=== PATIENT | female | born 1960 | race Caucasian/White ===

== ENCOUNTER 2018-03-03 12:14 | Day surgery (SDC) | payer BC ==
--- NOTE | 2018-02-25 12:51 | HP ---
AMENDED REPORT NOW INCLUDES COSIGNER DESIGNATION - ESIGNED BEFORE ADJUSTMENT CC: Dr. Jennifer Ward; Dr. Paxton Osborn * PREOPERATIVE HISTORY AND PHYSICAL: DATE OF ADMISSION: 03/03/18 DATE OF PREOPERATIVE HISTORY AND PHYSICAL EXAMINATION: 02/25/18. This patient is scheduled for same-day surgery admission by Dr. Awad on , 03/03/18. ATTENDING SURGEON: Dr. Ezequiel Awad * (dictated by Laura Espinoza NP). CHIEF COMPLAINT: Gallstones. HISTORY OF PRESENT ILLNESS: The patient is a 58-year-old female, recently evaluated by Dr. Awad for symptomatic cholelithiasis. The patient reports that she has had gallbladder problems for a few years and was evaluated by Dr. Quezada in the past and at that point, her diabetes was not under control and the surgery was postponed. More recently, she has been having right upper quadrant pain radiating to the back associated with queasiness and bloating. She has occasional bouts of light mina-colored stools, no dark urine, no fevers or chills. She recently had a gallbladder ultrasound, which shows cholelithiasis. She has been on a low-fat diet and has been able to lose 30 pounds over the last 6 months and her diabetes is under better control. Dr. Awad has recommended laparoscopic cholecystectomy and described the nature of the surgical procedure, the relevant risks and benefits and today, I reviewed the expected postoperative care and recovery. The patient has had a chance to ask questions and stated that she understands the information and is satisfied with the answers given to her questions. She will sign surgical consent on the day of surgery. PAST MEDICAL HISTORY: Significant for type 2 diabetes, currently on insulin; obesity; borderline hypertension; mild TIA. PAST SURGICAL HISTORY: section; D and C. OB HISTORY: 1, para 1. She is postmenopausal and has a plan to schedule mammogram and pelvic exam. MEDICATIONS: 1. Aspirin 81 mg p.o. daily, which she will continue in the perioperative period. 2. Basaglar 100 units per mL 22 units subcutaneously daily at bedtime. 3. NovoLog 100 units per mL sliding scale. 4. Melatonin 3 mg p.o. at bedtime. ALLERGIES: ERYTHROMYCIN, AUGMENTIN, and LEVAQUIN, all have caused rash; RAMIPRIL caused persistent cough. FAMILY HISTORY: Positive for heart disease and diabetes. 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 She has never smoked. She drinks alcohol very rarely and denies the use of other substances. She is routinely exercising. REVIEW OF SYSTEMS: Constitutional: No fevers, chills, excessive fatigue. Endocrine: She is diabetic and is currently on insulin. She checks her fingersticks glucose before each meal, typically it is running in the 120 to 138 range. No known thyroid disease. Hematologic: No easy bruising or bleeding. No blood transfusions. Respiratory: No dyspnea on exertion. No chronic cough. Cardiovascular: No anginal chest pain or palpitations. She had a consultation with Dr. Osborn 11/18/17 after she had an abnormal echocardiogram. She had a mild TIA in the spring of this year with symptoms of impaired speech for a very brief period of time and therefore, the echocardiogram was recommended and done 10/01/17. The echocardiogram showed normal LV function with ejection fraction of 60%. Mild left ventricular hypertrophy and mild diastolic dysfunction, minimal valvular disease. She has not had any recurrence of the impaired speech and is scheduled for Neurology followup. She will also have followup with Dr. Osborn. Her EKG revealed normal sinus rhythm with left ventricular hypertrophy. Gastrointestinal: As described in history of present illness. No change in bowel habits. No GI bleeding. No heartburn. Genitourinary: No dysuria. No tea-colored urine. Musculoskeletal: No complaints of joint or back pain. Neurologic: No headache or blurred vision. No areas of focal weakness or numbness. No recurrence of impaired speech. General: No previous anesthesia complications. No history of deep vein thrombosis or pulmonary embolism. PHYSICAL EXAMINATION GENERAL SURVEY: The patient is a 58-year-old female, morbidly obese, well developed, in no acute distress. VITAL SIGNS: Height 65 inches, weight 263 pounds, body mass index 43.8. Blood pressure 148/80, pulse 62 and regular, respiratory rate 18. Temperature 96.4 tympanic. HEENT: Benign. Sclerae anicteric. NECK: Supple. No cervical lymphadenopathy. LUNGS: Breath sounds bilaterally clear and equal. HEART: Regular rate and rhythm. No murmurs or rubs appreciated. ABDOMEN: Obese, soft, nondistended. Active bowel sounds. Mildly tender in the right upper quadrant. No guarding. No Venegas's sign. No obvious masses or organomegaly, but exam is limited by body habitus. No skin fold rashes. PELVIC: Exam deferred. RECTAL: Exam deferred. EXTREMITIES: Right lower extremity with ropy varicose veins; no edema. Both lower extremities are warm with 2+ pulses throughout. No skin ulcerations. NEUROLOGIC: Alert and oriented x3. Steady gait. SKIN: Warm, dry intact, anicteric. IMPRESSION: Symptomatic cholelithiasis. PLAN: Same-day surgery admission to Dr. Awad's service for laparoscopic cholecystectomy on , 03/03/18. ADRIANO ESPINOZA, ISREAL [id number]/[facility] #: [id number] TAMEKA
[~2018-03-03 12:14] MED LIST: Buffered Lidocaine 0.9% SYRIN* 5 ML/SYR SYRINGE INTRADERM ONE
[2018-03-03] MEDS ORDERED: Heparin VIAL(*) 5000 UNITS/ML VIAL (FIVE THOUSAND) ONE (12:25)
[2018-03-03] MEDS ORDERED: Clindamycin 900 MG IVPREMIX(* 900 MG/50 ML SDV IV ONE (12:26)
[2018-03-03] MEDS ORDERED: Bupivacaine 0.25% W/EPI* 10 ML SDV ONE (12:35)
[2018-03-03] MEDS ORDERED: Propofol* 10 MG/ML 20 ML BTL IV PUSH ONE (14:20)
[2018-03-03] MEDS ORDERED: fentaNYL* 50 MCG/ML 2 ML VIAL (100 MCG VIAL) ONE ×2 (14:20→15:43)
[2018-03-03] MEDS ORDERED: Midazolam* 1 MG/ML 5 ML VIAL (5 MG) ONE (14:20)
[2018-03-03] MEDS ORDERED: Atracurium* 10 MG/ML 10 ML VIAL ONE (14:20)
[2018-03-03] MEDS ORDERED: Ondansetron INJ* 2 MG/ML VIAL IV PRN (15:28)
[2018-03-03] MEDS ORDERED: HYDROmorphone INJ* 0.5 MG/0.5 ML SYRINGE IV PRN (15:28)
[2018-03-03] MEDS ORDERED: DiMENhydriNATE IV* 50 MG/ML VIAL IV PUSH PRN (15:28)
[2018-03-03] MEDS ORDERED: HYDROcodone/ACETAMIN 5-325 MG* 1 TAB PO PRN (15:28)
[2018-03-03] MEDS ORDERED: oxyCODONE/Acetamin 5/325 MG* TAB PO PRN (15:28)
[2018-03-03] MEDS ORDERED: Naloxone* 0.4 MG/ML 1 ML VIAL IV PRN (15:28)
[2018-03-03] MEDS ORDERED: Ketorolac INJ* 30 MG/ML 1 ML VIAL ONE (15:30)
[2018-03-03] MEDS ORDERED: Ondansetron INJ* 2 MG/ML VIAL ONE (15:30)
[2018-03-03] MEDS: fentaNYL* 50 MCG/ML 2 ML VIAL (100 MCG VIAL) IV PRN ×4 (15:45→15:58)
[2018-03-03] MEDS ORDERED: HYDROcodone/ACETAMIN 5-325 MG* 1 TAB ONE (16:57)
[2018-03-03 17:28] VITALS: BP 156/83
--- NOTE | 2018-03-04 01:16 | OP ---
CC: Dr. Jennifer Ward * DATE OF OPERATION: 03/03/18 - [facility] DATE OF : 62 SURGEON: Ezequiel Awad MD INSPECTOR BALL POINTS: Lacie Ledezma NP ANESTHESIOLOGIST: Dr. Chacon. ANESTHESIA: General anesthetic, local infiltration. PRE-OP DIAGNOSIS: Symptomatic cholelithiasis. POST-OP DIAGNOSIS: Symptomatic cholelithiasis. OPERATIVE PROCEDURE: Laparoscopic cholecystectomy. DESCRIPTION OF PROCEDURE: The patient was supine on the operative table. After adequate general anesthetic, compression stockings, Carie Hugger warmer, and intravenous antibiotics, the abdomen was prepped with antiseptic and draped in a sterile fashion. She was appropriately secured and positioned on the table. Footboard was utilized. The abdomen was prepped with antiseptic and draped in a sterile fashion. Local infiltrative anesthesia was administered in the right upper quadrant. A 5-mm incision was created and 5-mm blunt port cannula was placed under direct vision. Insufflation was carried out with carbon dioxide. Additional cannulae, 5-mm supraumbilical and right anterior axillary line and 12-mm subxiphoid placed through small stab wounds under direct vision. The gallbladder had adhesions on it from the omentum. These were taken down. The gallbladder was tented upward and areola tissue was taken down with the cystic duct and cystic artery, which were both readily identified , clipped and divided. The gallbladder was taken off the liver bed using scissor cautery and there was some spillage. The gallbladder was placed in a retrieval bag. The area of spillage was well irrigated and washed and suctioned and no residual material could be identified. The gallbladder was removed through the subxiphoid port in the retrieval bag and the operative field was again inspected and irrigated. Everything was in good condition. The cannulae were removed. Pneumoperitoneum allowed to escape and skin incisions closed with 5-0 Vicryl followed by Steri-Strips. She tolerated the procedure well, was awakened and brought to Recovery in good condition. No complications. No drains. Pathologic specimen is gallbladder. Sponge and instrument counts correct. Estimated blood loss 20 mL. [id number]/[facility] #: [id number] [facility]
== END 2018-03-03 17:33 | disposition home or self-care (01) ==
LOC: OR 12:14
PROVIDERS: ATTEND Surgery
DX: K80.10 Calculus of gallbladder with chronic cholecystitis without obstruction (principal); E11.9 Type 2 diabetes mellitus without complications; Z79.4 Long term (current) use of insulin; G45.9 Transient cerebral ischemic attack, unspecified; E66.01 Morbid (severe) obesity due to excess calories; Z68.41 Body mass index [BMI] 40.0-44.9, adult; J45.909 Unspecified asthma, uncomplicated; I10 Essential (primary) hypertension
CPT/HCPCS: 88304; J1644; J1885; J2250; J2405; J2704; J3010

== ENCOUNTER 2018-09-14 16:15 | Inpatient (IN) | payer BC ==
--- NOTE | 2018-09-14 17:19 | ED ---
Neurological HPI - HPI Summary HPI Summary: 58 year old patient with past medical history of HTN and anxiety, presents to day complaining of subacute focal neurologic deficit since Wednesday evening. - History of Current Complaint Chief Complaint: EDNeurologicalDeficit Stated Complaint: MOBILITY ISSUE Time Seen by Provider: 09/14/18 16:32 Hx Obtained From: Patient, Family/All Source Analyst Onset/Duration: Gradual Onset, Started days ago, Worse Since Timing: Intermittent Episodes Lasting: - patient is having intermittent episodes of mouth numbness (including gums), ataxia, dysmetria and dysarthria since Wednesday evening. Onset Severity: Mild Current Severity: Moderate Neurological Deficit Location: Generalized, Facial Pain Intensity: 0 Pain Scale Used: 0-10 Numeric Character: Numbness/Tingling, Impaired Speech, Other: - difficulty ambulating, difficulty with fine movement in hands Syncope Timing: no syncope Aggravating: Unknown Alleviating: Nothing Associated Signs and Symptoms: Positive: Unsteady Gait, Change in Diet, Anxiety. Negative: Visual Changes, Headache, Memory Loss, Confusion, Loss of Consciousness, Seizure, Nausea/Vomiting, Decreased Oral Intake, Fever, Neck Pain /Stiffness, Recent Illness, Diarrhea, Chest Pain, Shortness of Breath, Palpitations TPA Considered: No - patient presented >4.5h Similar Episode/Dx as: possible TIA once in the past - Additional Pertinent History Referred By: PCP Previous Visit Within 72 Hours for the same complaint: PCP Diagnosis From Previous Visit: unknown, labs drawn Prescriptions Given On Prior Visit: none Oxygen Devices Used Prior to Hospitalization: None Have you ever had this problem before: Yes - once for 10 minutes, the patient had dysarthria, one year ago - Allergy/Home Medications Allergies/Adverse Reactions: Allergies Allergy/AdvReac Type Severity Reaction Status Date / Time ramipril Allergy Severe Coughing Verified 09/14/18 16:24 Adhesive Tape Allergy Intermediate Rash And Verified 09/14/18 16:24 Itching amoxicillin [From Augmentin] Allergy Intermediate Rash And Verified 09/14/18 16: 24 Itching clavulanic acid Allergy Intermediate Rash And Verified 09/14/18 16:24 [From Augmentin] Itching erythromycin base Allergy Intermediate Rash And Verified 09/14/18 16:24 Itching levofloxacin [From Levaquin] Allergy Intermediate Rash And Verified 09/14/18 16: 24 Itching Seasonal Allergies Allergy Mild Eyes Uncoded 09/14/18 16:24 Itchy/Swollen/Red/Watery Home Medications: Home Medications Atenolol 1 tab PO DAILY 09/14/18 [History Confirmed 09/14/18] PMH/Surg Hx/FS Hx/Imm Hx Endocrine/Hematology History: Reports: Hx Diabetes - Type 2, Hx Anemia - history of, none recent Cardiovascular History: Reports: Hx Hypertension, Other Cardiovascular Problems/ Disorders - Abnormal echocardiogram- Saw Dr Osborn 11/18/17 Respiratory History: Denies: Other Respiratory Problems/Disorders GI History: Reports: Other GI Disorders - Chronic colycystitis, calculus of gallbladder History: Reports: Other Problems/Disorders - history of UTIs prior to controlling diabetes Musculoskeletal History: Reports: Hx Arthritis - Right knee, Other Musculoskeletal History - History of torn meniscus left knee Sensory History: Reports: Hx Contacts or Glasses - Reading glasses Denies: Hx Hearing Aid Opthamlomology History: Reports: Hx Contacts or Glasses - Reading glasses Neurological History: Reports: Hx Nerve Disease - Diabetic Neuropathy Denies: Other Neuro Impairments/Disorders Psychiatric History: Reports: Hx Anxiety - history of, no medication, Hx Depression - history of, no medication - Cancer History Hx Chemotherapy: No Hx Radiation Therapy: No - Surgical History Surgery Procedure, Year, and Place: C section-cyst removal- general anesthesia. D&C. Oral surgery as a child Hx Anesthesia Reactions: No Infectious Disease History: No Infectious Disease History: Denies: Traveled Outside the [place] in Last 30 Days - Social History Alcohol Use: Rare Substance Use Type: Reports: None Smoking Status (MU): Never Smoked Tobacco Review of Systems Positive: Fatigue. Negative: Fever, Chills Eyes: Negative Positive: Nasal Discharge - mild rhinorrhea that started today Cardiovascular: Negative Negative: Palpitations, Chest Pain Respiratory: Negative Negative: Shortness Of Breath, Cough Gastrointestinal: Negative Negative: Abdominal Pain, Vomiting, Diarrhea, Nausea Genitourinary: Negative Negative: burning, frequency, hematuria Musculoskeletal: Negative Skin: Negative Neurological: Other - ataxia, dysmetria Positive: Numbness, Slurred Speech. Negative: Headache, Weakness Psychological: Normal, Other - History of anxiety in the past but not today All Other Systems Reviewed And Are Negative: Yes Physical Exam Triage Information Reviewed: Yes Vital Signs On Initial Exam: Initial Vitals Temp Pulse Resp BP Pulse Ox 98.4 F 68 19 153/87 97 09/14/18 16:19 09/14/18 16:19 09/14/18 16:19 09/14/18 16:19 09/14/18 16:19 Vital Signs Reviewed: Yes Appearance: Positive: Well-Appearing, Well-Nourished Skin: Positive: Skin Color Reflects Adequate Perfusion. Negative: Jaundiced, Mottled @ Head/Face: Positive: Normal Head/Face Inspection Eyes: Positive: EOMI, BUSTER ENT: Positive: Hearing grossly normal. Negative: Muffled voice, Hoarse voice Neck: Positive: Supple, Nontender, No Lymphadenopathy. Negative: Nuchal Rigidity Respiratory/Lung Sounds: Positive: Clear to Auscultation, Breath Sounds Present , Decreased Breath Sounds. Negative: Rales, Rhonchi, Stridor, Tracheal Deviation, Wheezes Cardiovascular: Positive: Normal, RRR. Negative: Murmur, Leg Edema Left, Leg Edema Right Abdomen Description: Positive: Nontender, No Organomegaly, Soft. Negative: Distended, Guarding, Pulsatile Mass Bowel Sounds: Positive: Present Musculoskeletal: Positive: Normal, Strength/ROM Intact Neurological: Positive: Alert, Oriented to Person Place, Time, Focal Deficit @, Heel to Toe - normal, Finger to Nose - patient has dysmetria in left hand., Other - NIHSS = 3. Negative: CN Intact II-III - minimally decreased sensation around mouth bilaterally. otherwise cranial nerves are intact, Receptive Aphasia, Expressive Aphasia, Facial Symmetry, Speech Normal - slurred speech that improves with effort Psychiatric: Positive: Affect/Mood Appropriate AVPU Assessment: Alert Diagnostics - Vital Signs Vital Signs Temp Pulse Resp BP Pulse Ox 09/14/18 16:19 98.4 F 68 19 153/87 97 - Laboratory Result Diagrams: 09/14/18 17:16 09/14/18 17:16 Lab Statement: Any lab studies that have been ordered have been reviewed, and results considered in the medical decision making process. NIH Scale - NIH Scale Ask Patient the Month and His/Her Age: Both Correct Ask Pt to Open/Close Eyes and Log Loader/Release Non-Paretic Hand: Both Correctly Best Gaze (Only Horizontal Eye Movement): Normal Visual Field Testing: No Visual Loss Facial Paresis-Pt to Smile & Close Eyes or Grimace Symmetry: Normal/Symmetrical Motor Function - Right Arm: No Drift-Holds 10 Seconds Motor Function - Left Arm: No Drift-Holds 10 Seconds Motor Function - Right Leg: No Drift-Holds 10 Seconds Motor Function - Left Leg: No Drift-Holds 10 Seconds Limb Ataxia-Must be out of Proportion to Weakness Present: Present in One Limb Sensory (Use Pinprick to Test Arms/Legs/Trunk/Face): Normal Best Language (Describe Picture, Name Items): No Aphasia Dysarthria (Read Several Words): Slurs Some Words Extinction and Inattention: No Abnormality Re-Evaluation - Re-Evaluation Second Eval Re-Evaluation Time: 18:30 - patient unchanged Change: Unchanged Course/Dx - Course Assessment/Plan: Assessment: Subacute neurologic deficit with focal hypoattenuation seen by radiology on CT head. Plan: Neurology consultation and admission to hospitalist service - Differential Dx Differential Diagnoses Neuro: Positive: Cerebrovascular Accident, Encephalitis, Migraine, Seizure Disorder, Transient Ischemic Attack - multiple sclerosis - Diagnoses Provider Diagnoses: Focal neurological deficit, onset greater than 24 hours - Physician Notifications Discussed Care Of Patient With: Shobha Sands - she recommends a CTA head and neck to rule out acute larve vessel occlusion. admission if negative Time Discussed With Above Provider: 18:50 Discharge - Sign-Out/Discharge Documenting (check all that apply): Sign-Out Patient Signing out patient TO: Amadeo Stuart - pending CTA result Patient Received Moderate/Deep Sedation with Procedure: No - Discharge Plan Condition: Stable Referrals: Ed WAGNER,Jennifer Garcia [Primary Care Provider] - - Billing Disposition and Condition Condition: STABLE
[2018-09-14 17:24] LABS: ABS Basophils 0.1 10^3/ul (0-0.2); ABS Eosinophils 0.2 10^3/ul (0-0.6); ABS Lymphocytes 2.9 10^3/ul (1.0-4.8); ABS Monocytes 0.8 10^3/ul (0-0.8); ABS Neutrophils 5.3 10^3/ul (1.5-7.7); ABS Nucleated RBC 0 10^3/ul; Eosinophil % 1.8 %; Hematocrit 41 % (35-47); Hemoglobin 13.9 g/dl (12.0-16.0); Lymphocyte % 31.6 %; Mean Corpuscular HGB Conc 34 g/dl (31-36); Mean Corpuscular Hemoglobin 30 pg (27-31); Mean Corpuscular Volume 89 fL (80-97); Mean Platelet Volume 8.9 fL (7.4-10.4); Nucleated Red Blood Cells % 0; Platelet Count 294 10^3/ul (150-450); Red Blood Count 4.61 10^6/ul (4.00-5.40); Red Cell Distribution Width 13 % (10.5-15); White Blood Count 9.2 10^3/ul (3.5-10.8)
[2018-09-14 17:33] LABS: Activated Partial Thrombo Time 32.7 seconds (26.0-36.3); INR 0.91 (0.77-1.02)
[2018-09-14 17:40] LABS: Albumin 3.9 g/dL (3.2-5.2); Albumin/Globulin Ratio 1.3 (1-3); BUN/Creatinine Ratio 31.7 (8-20); Calcium 9.7 mg/dL (8.6-10.3); EGFR African American 86.9 (>60); EGFR Non-African American 71.9 (>60); Potassium 4.7 mmol/L (3.5-5.0); Total Bilirubin 0.5 mg/dL (0.2-1.0); Total Protein 6.9 g/dL (6.4-8.9)
[2018-09-14 18:41] LABS: Magnesium 1.8 mg/dL (1.9-2.7)
[2018-09-14] MEDS ORDERED: Iodixanol* (CONTRAST) 320 MG/ML 100 ML SDV IV ONE (19:08)
[2018-09-14] MEDS ORDERED: Aspirin TAB* 325 MG PO ONE (20:18)
--- NOTE | 2018-09-14 20:24 | ED ---
Progress - Progress Note Progress Note: Pt is a signout from Dr. Diaz. She is presently stable and will be admitted to the hospital under Dr. Bai for further evaluation and testing. - Results/Orders Results/Orders: Head CTA: 1. Right: No stenosis of the right internal carotid artery or vertebral artery. 2. Left: Calcified plaque in the proximal left internal carotid artery and carotid bulb with approximately 30% stenosis. The vertebral artery is patent. 3. Hypodense nodule in the left thyroid lobe measuring 1.6 cm. Non-emergent ultrasound evaluation is suggested. - Consult/PCP Time Called: 20:15 Consult/PCP: Dr. Sands Consult Reason/Comments: Neurology consult - agreed with the plan, recommended admission. Re-Evaluation - Re-Evaluation Second Eval Re-Evaluation Time: 18:30 - patient unchanged Change: Unchanged Course/Dx - Diagnoses Provider Diagnoses: Focal neurological deficit, onset greater than 24 hours Discharge - Sign-Out/Discharge Documenting (check all that apply): Patient Departure - adm, Receiving Sign-Out Receiving patient FROM: Clair Diaz - Discharge Plan Condition: Stable Disposition: ADMITTED TO [facility] Referrals: Jennifer Ward MD [Primary Care Provider] - - Attestation Statements Document Initiated by Scribe: Yes Documenting Scribe: Josette Butts Provider For Whom Scribmarichuy is Documenting (Include Credential): Amadeo Stuart MD. Scribe Attestation: Josette Barcenas, scribed for Amadeo Stuart MD. on 09/14/18 at 2051.
[2018-09-14] MEDS ORDERED: Aspirin EC TAB* 81 MG TAB.EC ONE (20:31)
[2018-09-14] MEDS ORDERED: Acetaminophen TAB* 325 MG PO PRN (21:01)
[2018-09-14] MEDS ORDERED: Ondansetron INJ* 2 MG/ML VIAL IV PRN (21:01)
[2018-09-14] MEDS ORDERED: Dextrose 50% Syringe 50 ML* 25 GM/50 ML SYRINGE IV PUSH PRN (21:05)
[2018-09-14] MEDS ORDERED: LORazepam INJ* 2 MG/ML 1 ML VIAL IV PUSH ONE (21:17)
[2018-09-14] MEDS ORDERED: LORazepam INJ* 2 MG/ML 1 ML VIAL ONE (21:21)
[2018-09-14] MEDS ORDERED: Magnesium Sulfate 2 GM IV* 2 GM/50 ML BAG IVPB ONE (21:27)
[2018-09-14] MEDS ORDERED: Insulin GLARGINE(*) 1 UNITS UNIT SUBCUT SCH (22:00)
[2018-09-14 22:14] LABS: TSH (Thyroid Stimulating Horm) 1.66 mcIU/mL (0.34-5.60)
[2018-09-14] MEDS: Heparin VIAL(*) 5000 UNITS/ML VIAL (FIVE THOUSAND) SUBCUT SCH (22:46)
[2018-09-14] MEDS: Insulin GLARGINE(*) 1 UNITS UNIT SUBCUT SCH (22:47)
--- NOTE | 2018-09-15 02:44 | HP ---
CC: Dr. Jennifer Ward * HISTORY AND PHYSICAL: DATE OF ADMISSION: 09/14/18 PRIMARY CARE DOCTOR: Dr. Jennifer Ward. MY ATTENDING WHILE IN THE HOSPITAL: Dr. Josette Bai.* (DICTATED BY KAROLINA BLUM) CHIEF COMPLAINT: Slurred speech x3 days. HISTORY OF PRESENT ILLNESS: Ms. Sheryl Kaufman is a 58-year-old female with past medical history significant for diabetes mellitus type 2, hypertension, and possible TIA in September 2017 who presented to the emergency department after sudden onset of slurred speech on Wednesday in the evening, which got progressively worse from Wednesday to Wednesday and then plateaued. Patient on Wednesday also had associated symptoms of clumsiness and weakness in her right hand as well as difficulty ambulating, particularly with making turns and with falling more to her right than to her left. Patient had one episode of slurred speech that resolved quickly that she went to the [facility] for previously. Patient states that she saw a neurologist, Dr. Mathias in [place], who did not believe that she had a TIA at that time. Patient has relatively poorly controlled diabetes, for which she is on insulin. Patient recently started a ketogenic diet and has lost 48 pounds, she says. Patient yesterday went to see her primary care doctor, who ordered a beta fox for high blood pressure, which she took one dose of atenolol 25 mg. Patient had had no difficulty with swallowing during this slurred speech episode. Patient has not passed out. Patient has not had any palpitations. Patient denied any chest pain or shortness of breath. Patient has not been recently ill. Patient has no sick contacts. Patient has no other associated symptoms. Patient has no changes in her vision. Patient recently underwent an injection into her eye for diabetic retinopathy. Due to concern for CVA, we are asked to evaluate the patient for admission. PAST MEDICAL HISTORY: Diabetes mellitus type 2, diabetic retinopathy, recently diagnosed hypertension, history of possible TIA. PAST SURGICAL HISTORY: Cholecystectomy in February 2018, in 1984. MEDICATIONS: 1. Basaglar insulin 84 units subcutaneously daily. 2. NovoLog insulin sliding scale. 3. Atenolol 25 mg p.o. daily. 4. Aspirin 81 mg p.o. daily. ALLERGIES: ERYTHROMYCIN, RAMIPRIL, AMOXICILLIN, CLAVULANIC ACID, adhesive tape , and LEVOFLOXACIN. FAMILY HISTORY: Patient's mother is alive, but has had 2 different types of cancer, large-cell lymphoma and colon. Patient's father of multiple myeloma. Patient has a brother with anxiety and sister with diabetes. SOCIAL HISTORY: Patient never smoked, drinks occasional alcohol, never used drugs. 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 Patient's surrogate decision maker will be her , Edson Kaufman. REVIEW OF SYSTEMS: A 14-point review of systems was reviewed and was negative, except as above in the HPI. PHYSICAL EXAMINATION GENERAL: The patient is a 58-year-old female who appears her stated age, sitting comfortably in bed, in no acute distress. VITAL SIGNS: At the time of evaluation, temperature 98.4, pulse rate 64, respiratory rate 15, oxygen saturation 95% on room air, blood pressure 147/65. HEENT: Head: Normocephalic, atraumatic. Sclerae anicteric. No conjunctival injection. Nasal mucosa moist. Oral mucosa moist. No pharyngeal erythema, discharge, or exudate. NECK: Supple, nontender. No lymphadenopathy. No carotid bruit auscultated. No JVD. RESPIRATORY: Clear to auscultation bilaterally. No wheezes, rales, or rhonchi. Good air exchange bilaterally. HEART: Regular rate and rhythm. No clicks, murmurs, gallops, or rubs. Pulse 2 + in the dorsalis pedis, posterior tibialis and radial areas. ABDOMEN: Soft, nontender, nondistended. Bowel sounds present and normoactive in all 4 quadrants. No hepatosplenomegaly. No abdominal bruits auscultated. No hepatojugular reflux. GENITOURINARY: No suprapubic or CVA tenderness. SKIN: Clean, dry, and intact. No rash. NEUROLOGIC: Right-sided wrinkling is less than the left. Right eye opens wider than the left eye. Right-sided facial droop. Asymmetric smile. Normal sensation. Palate elevates to the midline. Tongue extends to the midline. Symmetrical hearing. Pupils equal, round, and reactive to light approximately 4 mm, reacting down to 2. Strength 4-/5 in the right upper extremity distally and proximally. Strength 5/5 in the left upper extremity distally and proximally. Preserved sensation to light touch, pinprick, and cold in bilateral upper and lower extremities distally and proximally. Strength 5/5 bilaterally in the lower extremities distally and proximally. Reflexes 2+ in bilateral biceps, patellar and Achilles areas. Babinski's is downgoing bilaterally. Dysmetria with right hand, symmetric finger taps. Gait not tested. No nystagmus. PSYCHIATRIC: Pleasant and cooperative. DIAGNOSTIC STUDIES/LAB DATA: Laboratory Data: White blood cell count 9.2, hemoglobin 13.9, platelet count 294. INR 0.91, aPTT 32.7. Sodium 139, potassium 4.7, chloride 104, carbon dioxide 30, anion gap 5, BUN 26, creatinine 0.82, glucose 155, lactic acid 0.8, calcium 9.7, magnesium 1.8. Bilirubin 0.5, AST 16, ALT 18, alkaline phosphatase 53. Troponin I 0.00. Total protein 6.9, albumin 3.9, globulin 3.0. Studies: Brain CT read as there is age-indeterminate asymmetric subcortical and periventricular white matter hypoattenuation involving the white matter tracts in the right frontal and parietal lobes. Differential diagnosis includes chronic microvascular disease versus subacute to chronic infarction in a patient exhibiting focal neurologic deficits. Characterization can be made with an MRI of the brain. Mild asymmetric enlargement of the lateral ventricle relative to the left of unknown chronicity, indeterminate clinical significance. Also, incidentally noted is septum cavum pellucidum of doubtful clinical significance. Electrocardiogram shows normal sinus rhythm, left axis deviation. No ST- segment abnormalities. No hypertrophic enlargement. U wave is present. Head CTA from 09/14/18 read as occlusion of the right middle cerebral artery and cortical branches is seen. No stenosis of the right internal carotid artery. The left vertebral artery has calcified plaque in the proximal left internal coronary artery and carotid bulb with approximately 37% stenosis. Vertebral artery is present. Hypodense nodule on the left thyroid lobe measuring 1.6 cm, nonurgent ultrasound evaluation is suggested. ASSESSMENT AND PLAN: Impression: Ms. Sheryl Kaufman is a 58-year-old female with past medical history significant for diabetes mellitus, hypertension, possible previous transient ischemic attack who presents to the emergency department with 3 days of neurologic deficits including slurred speech, ataxia, and right-sided weakness. Patient is admitted to the hospital for evaluation of stroke. 1. Cerebrovascular accident. Patient has mainly right-sided deficits associated with her cranial nerves and the right upper extremity as well as dysmetria and ataxia, primarily involving the right side. Patient has a right- sided large-vessel occlusion, which does not correlate well with these symptoms. Patient will have an MRI of her brain to further characterize these symptoms as it is possible that the large-vessel occlusion is not the cause of these symptoms. Patient was consulted by Dr. Shobha Sands of neurology, who recommended dual antiplatelet therapy. Risk stratification with a lipid profile , hemoglobin A1c as well as a transthoracic echocardiogram, brain MRI. Patient will be on telemetry to monitor for atrial fibrillation. Consideration for long -term monitoring should be given. 2. Diabetes mellitus type 2. Patient takes 84 units of Basaglar insulin daily. Patient will have this slightly decreased to 70 units as it is likely her oral intake will be less while in the hospital. Patient will have standing 5 units of lispro at meals, which she states is usually the minimum that she takes as well as the sliding scale. To help preserve as much brain tissue as possible, it will be attempted to have patient to have quite tight glucose control avoiding hypoglycemia. Hemoglobin A1c is pending. 3. Hypertension. Patient was hypertensive yesterday at primary care's office and was started on atenolol. It will be attempted to keep patient's blood pressure between 140 and 180 systolic, which is where it is approximately now. Patient will not have fluids nor blood pressure medications. These can be added later if indicated. 4. DVT prophylaxis. Patient is a high risk and will have heparin subcu and SCDs. 5. FEN: Patient will have a heart-healthy diet without caffeine. Patient will have consistent carbohydrate. Patient has passed her swallow eval. Fluids not indicated at this time. 6. Code status. Patient will be a full code. Patient's surrogate decision maker will be her as above. TIME SPENT: Approximately 60 minutes were spent on the admission of this patient, 30 of which were spent [id number] with the patient obtaining history and physical and discussing treatment plan. Plan was discussed with my attending, Dr. Josette Bai, and she is in agreement. KAROLINA BLUM [id number]/[facility] #: [id number] TAMEKA
[2018-09-15] MEDS: Heparin VIAL(*) 5000 UNITS/ML VIAL (FIVE THOUSAND) SUBCUT SCH ×3 (05:03→21:03)
[2018-09-15 07:07] LABS: ABS Basophils 0.1 10^3/ul (0-0.2); ABS Eosinophils 0.2 10^3/ul (0-0.6); ABS Monocytes 0.7 10^3/ul (0-0.8); ABS Nucleated RBC 0 10^3/ul; Eosinophil % 1.9 %; Hematocrit 39 % (35-47); Hemoglobin 13.3 g/dl (12.0-16.0); Lymphocyte % 38.2 %; Mean Corpuscular HGB Conc 34 g/dl (31-36); Mean Corpuscular Hemoglobin 30 pg (27-31); Mean Corpuscular Volume 87 fL (80-97); Mean Platelet Volume 9.3 fL (7.4-10.4); Nucleated Red Blood Cells % 0; Platelet Count 267 10^3/ul (150-450); Red Blood Count 4.42 10^6/ul (4.00-5.40); Red Cell Distribution Width 13 % (10.5-15); White Blood Count 7.9 10^3/ul (3.5-10.8)
[2018-09-15] MEDS ORDERED: Insulin LISPRO* 1 UNITS UNIT SUBCUT SCH ×2 (07:30)
[2018-09-15 07:37] LABS: BUN/Creatinine Ratio 31.9 (8-20); Calcium 9.2 mg/dL (8.6-10.3); EGFR African American 106.1 (>60); EGFR Non-African American 87.7 (>60); HDL Cholesterol 36.3 mg/dL; Potassium 3.7 mmol/L (3.5-5.0)
[2018-09-15] MEDS: Insulin LISPRO* 1 UNITS UNIT SUBCUT SCH ×6 (08:55→16:44)
[2018-09-15] MEDS: Clopidogrel TAB* 75 MG PO SCH (08:56)
[2018-09-15] MEDS: Aspirin EC TAB* 81 MG TAB.EC PO SCH (08:57)
--- NOTE | 2018-09-15 10:25 | PN ---
Subjective Date of Service: 09/15/18 Interval History: Ms. Self is feeling ok today. She offers no complaints. She does feel as though he speech is still slurred and has not improved. She reports right leg weakness. She denies right arm weakness, but feels as though her arm does not always "do what I want it to do." She denies CP, SOB, N/V, dizziness. Family History: Unchanged from Admission Social History: Unchanged from Admission Past Medical History: Unchanged from Admission Objective Active Medications: Acetaminophen (Tylenol Tab*) 650 mg PO Q6H PRN FEVER/PAIN Aspirin (Aspirin Ec Tab*) 81 mg PO DAILY AUDREY Clopidogrel Bisulfate (Plavix Tab*) 75 mg PO DAILY AUDREY Dextrose (D50w Syringe 50 Ml*) 12.5 gm IV PUSH .FOR FS < 60 - SS PRN FS < 60 Heparin Sodium (Porcine) (Heparin Vial(*)) 5,000 units SUBCUT Q8HR AUDREY Insulin Glargine (Lantus(*)) 70 units SUBCUT Q24H AUDREY Insulin Human Lispro (Humalog*) 5 units SUBCUT AC AUDREY Insulin Human Lispro (Humalog*) 0 units SUBCUT AC AUDREY; Protocol Ondansetron HCl (Zofran Inj*) 4 mg IV Q6H PRN NAUSEA Vital Signs - 8 hr 09/15/18 09/15/18 09/15/18 03:59 07:20 07:25 Temperature 98.6 F 97.6 F Pulse Rate 64 66 Respiratory 16 14 14 Rate Blood Pressure 171/81 154/69 (mmHg) O2 Sat by Pulse 97 95 Oximetry Oxygen Devices in Use Now: None Appearance: Middle aged female laying in bed in NAD; Drowsy Eyes: No Scleral Icterus Ears/Nose/Mouth/Throat: Mucous Membranes Moist Neck: NL Appearance and Movements; NL JVP, Trachea Midline Respiratory: Symmetrical Chest Expansion and Respiratory Effort, Clear to Auscultation Cardiovascular: NL Sounds; No Murmurs; No JVD, RRR Abdominal: NL Sounds; No Tenderness; No Distention Extremities: No Edema Skin: No Rash or Ulcers Neurological: Alert and Oriented x 3, NL Sensation Lines/Tubes/Other Access: Clean, Dry and Intact Peripheral IV Nutrition: Taking PO's Result Diagrams: 09/15/18 06:27 09/15/18 06:27 Assess/Plan/Problems-Billing Assessment: Ms. Self is a 58 yo F with PMH of DM2, HTN, and TIA; who presented with c/o 3 days of slurred speech and was found to have a thalamic CVA. - Patient Problems (1) CVA (cerebral vascular accident) Code(s): I63.9 - CEREBRAL INFARCTION, UNSPECIFIED Comment: - With right-sided deficits and dysarthria - CTA shows occulsion of right middle cerebral artery and 30% stenosis of the left internal carotid; MRI shows acute infarct of the left thalamus and subacute /chronic infarct of the right hemphill radiata - Echo with negative bubble study - Appreciate Neurology consult; - Continue aspirin, Plavix (2) Hyperlipidemia Code(s): E78.5 - HYPERLIPIDEMIA, UNSPECIFIED Comment: - Lipid panel shows poor control with LDL 127 - Start atorvastatin (3) Diabetes type 2, uncontrolled Code(s): E11.65 - TYPE 2 DIABETES MELLITUS WITH HYPERGLYCEMIA Comment: - A1c 10.3% - Would benefit from outpatient f/u with Endocrinology - Continue glargine and lispro SS (4) Hypertension Code(s): I10 - ESSENTIAL (PRIMARY) HYPERTENSION Comment: - Allowing for permissive hypertension with goal SBP 140-180 - Hold atenolol, but can likely resume this at d/c (5) Thyroid nodule Code(s): E04.1 - NONTOXIC SINGLE THYROID NODULE Comment: - Incidental finding on CTA - Will need thyroid US as an outpatient (6) DVT prophylaxis Comment: - Heparin SQ (7) Full code status Code(s): Z78.9 - OTHER SPECIFIED HEALTH STATUS Comment: Status and Disposition: Inpatient. Anticipate d/c home when medically stable. Attending: Ezra Naqvi
[2018-09-15 11:18] LABS: Urine Appearance Cloudy; Urine Bilirubin Negative (Negative); Urine Blood Negative (Negative); Urine Color Yellow; Urine Glucose Negative (Negative); Urine Ketones Trace (Negative); Urine Nitrite Negative (Negative); Urine Protein Negative (Negative); Urine Specific Gravity 1.026 (1.010-1.030); Urine Urobilinogen Negative (Negative)
--- NOTE | 2018-09-15 13:02 | ECHO ---
Patient: LORENA ODOM [facility] Rec#: [id number] : 1960 Date: 09/15/2018 Age: 58y Height: 165 cm / 65.0 in Weight: 122 kg / 268.9 lbs Sex: F BSA: 2.24 Room#: [facility] Admit Date#: 09/14/2018 Type: Inpatient Referring: Burak Abbott Reading: Edson Anthony DO Dip Guider Stoves: Merary Best RDCS CC: Jennifer Ward MD Transthoracic Echocardiogram Indication: TIA BP: 171/81 HR: 72 Rhythm: NSR Findings History: DM, HTN, TIA 2018. Technical Comments: The study quality is fair. The study is technically limited due to patient body habitus. Completed at 1040. Left Ventricle: The left ventricular chamber size is normal. Mild concentric left ventricular hypertrophy is observed. Global left ventricular wall motion and contractility are within normal limits. There is normal left ventricular systolic function. The estimated ejection fraction is 60-65%. Abnormal left ventricular diastolic function is observed. Left Atrium: The left atrium is mildly dilated. Right Ventricle: The right ventricular chamber size and systolic function are within normal limits. Right Atrium: The right atrium is mildly dilated. Interatrial septum appears intact without evidence of shunting. The bubble study is negative. A patent foramen ovale is not demonstrated with color Doppler and agitated contrast. Aortic Valve: The aortic valve is trileaflet. The aortic valve leaflets are mildly thickened. There is no evidence of aortic regurgitation. There is no evidence of aortic stenosis. Mitral Valve: Moderate mitral annular calcification present. The mitral valve leaflets are mildly thickened. There is a trace of mitral regurgitation. There is no evidence of mitral stenosis. Tricuspid Valve: The tricuspid valve leaflets are normal. There is trace to mild tricuspid regurgitation. The right ventricular systolic pressure is estimated at 29 mmHg. No pulmonary hypertension is noted. There is no tricuspid stenosis. Pulmonic Valve: The pulmonic valve appears normal. There is a trace pulmonic regurgitation. There is no pulmonic stenosis. Pericardium: There is no significant pericardial effusion. Aorta: There is no dilatation of the ascending aorta. There is no dilatation of the aortic arch. The aortic root is normal in size. Pulmonary Artery: The main pulmonary artery is not well visualized. Venous: The inferior vena cava appears normal in size. There is less than 50% respiratory change in the inferior vena cava dimension. Contrast: Intravenous agitated saline contrast was used to assess intracardiac shunting. Images 27-30. Conclusions The left ventricular chamber size is normal. Mild concentric left ventricular hypertrophy is observed. Global left ventricular wall motion and contractility are within normal limits. There is normal left ventricular systolic function. The estimated ejection fraction is 60-65%. The left atrium is mildly dilated. The right ventricular chamber size and systolic function are within normal limits. Moderate mitral annular calcification present. No other significant valvular abnormalities noted The bubble study is negative. Compared to prior study from 09/2017, no significant changes noted Measurements Name Value Normal Range RVIDd (AP) 2D 3.1 cm (0.9 - 2.6) RVDdMajor (2D) 4.5 cm (2.2 - 4.4) RAd ISD 4CH 5.3 cm (3.4 - 4.9) RA (A4C)W 4.4 cm (2.9 - 4.6) IVSd (2D) 1.2 cm (0.6 - 1) LVPWd (2D) 1.1 cm (0.6 - 1) LVIDd (2D) 3.6 cm (3.6 - 5.4) LVIDs (2D) 2.5 cm - LV FS (2D) 26 % (25 - 45) Aortic Annulus 2.1 cm (1.4 - 2.6) Ao root diameter (2D) 3 cm (2.1 - 3.5) Ascending Ao 3.4 cm (2.1 - 3.4) Aortic arch 2 cm (1.8 - 3.4) LA dimension (AP) 2D 3.9 cm (2.3 - 3.8) LAd ISD 4CH 5.2 cm (2.9 - 5.3) LA ISD 4CH W 4.9 cm (2.5 - 4.5) Name Value Normal Range LA ESV BP (A/L) index 23 ml/m2 - Name Value Normal Range MV E-wave Vmax 0.9 m/sec - MV deceleration time 299 msec - MV A-wave Vmax 1.1 m/sec - MV E:A ratio 0.8 ratio - LV septal e' Vmax 0.07 m/sec - LV lateral e' Vmax 0.08 m/sec - LV E:e' septal ratio 12.9 ratio - LV E:e' lateral ratio 11.3 ratio - Name Value Normal Range AV Vmax 1.4 m/sec - AV VTI 28 cm - AV peak gradient 8 mmHg - AV mean gradient 3 mmHg - LVOT Vmax 1 m/sec - LVOT VTI 24 cm - LVOT peak gradient 4 mmHg - LVOT mean gradient 2 mmHg - NADEEM Vmax 0.9 m/sec - Name Value Normal Range TR Vmax 2.3 m/sec - TR peak gradient 21 mmHg - RAP 8 mmHg - RVSP 29 mmHg - IVC diameter 2 cm - Name Value Normal Range PV Vmax 1.1 m/sec - PV peak gradient 5 mmHg -
--- NOTE | 2018-09-15 16:20 | CONS ---
CONSULTATION REPORT: DATE OF CONSULT: 09/15/18 PATIENT OF: Dr. Ward and Dr. Sahni. HISTORY OF PRESENT ILLNESS: This is a 58-year-old right-handed woman, I am asked to evaluate for new onset of stroke. She noticed this past Wednesday perioral numbness on both sides of the mouth, a little bit of slurred speech. The notes that he thought the speech was little bit slurred even a few days before that, he attributed to something she ate, but when the symptoms persisted and had some clumsiness and weakness in the right hand and arm as well as increased difficulty walking, she went to see an day camp counselor at [place], who evaluated her and then symptoms persisted and , she came into the ER here and was admitted. She had seen Dr. Mathias, neurologist this past summer for longstanding symptoms of some speech issues that have since resolved. Her understanding at that time was that this was not thought to be a stroke. PAST MEDICAL HISTORY: Includes diabetes type 2, it is longstanding; diabetic retinopathy; diabetic neuropathy; and recently diagnosed hypertension. She has also had possible TIA back in September 2017. PAST SURGICAL HISTORY: She is status post cholecystectomy in 2018, . MEDICATIONS: Include: 1. Basaglar insulin 84 units subcu daily. 2. NovoLog insulin sliding scale. 3. Atenolol 25 mg daily. 4. Aspirin 81 mg daily. ALLERGIES: She is allergic to ERYTHROMYCIN, RAMIPRIL, AMOXICILLIN, CLAVULANIC ACID, ADHESIVE TAPE, and LEVOFLOXACIN. FAMILY HISTORY: Mother has had both large-cell lymphoma and colon cancer. Father of multiple myeloma. She has a sister with diabetes. SOCIAL HISTORY: She does not smoke. She drinks occasional alcohol and does not use drugs. She is and lives with her . REVIEW OF SYSTEMS: Negative in all 14 spheres other than HPI. PHYSICAL EXAM: Temperature 97.5, pulse 68, respirations 16, blood pressure 156/ 71. She is alert and oriented with slightly slurred speech with normal naming and fluency. Cranial nerves II through XII were intact except for trace right facial weakness. Disks were sharp. Motor exam revealed pronator drift in the right arm. There was mild trace weakness in the right arm and leg. She has mild clumsiness in her right arm and leg, with finger to nose in the arm and heel to buitrago on the right leg. Left leg was intact. Reflexes were trace. She had a wide-based stance and appeared unsteady on her feet. She notes that she has had longstanding diabetic neuropathy. Reflexes were trace to 1 with downgoing toes. Chest: Clear. Cardiovascular: Regular rate and rhythm. Abdomen: Soft with positive bowel sounds. DIAGNOSTIC STUDIES/LAB DATA: I reviewed her MRI scan, which showed a new left thalamic infarct, which is somewhat large for an acute vascular lacunar infarct measuring 9 x 7 according to the radiologist. There is chronic right hemphill radiata infarct and right intraventricular cyst. She had a CTA, which showed occlusion of the right middle cerebral artery as well as plaque in the left internal carotid and bulb with roughly 30% stenosis. There is a left nodular hypodensity. Blood work includes normal CBC, INR and PTT. Chemistries were normal other than elevated blood sugar and LDL of 127. Her BUN is 26, creatinine 0.82, magnesium is low at 1.8. Echo was pending. IMPRESSION AND PLAN: Octavio has new onset left thalamic stroke with right-sided symptoms. This is most likely from atherosclerotic disease and I would treat her with both aspirin and Plavix for 3 months and then go to Plavix alone after that. She needs her elevated LDL treated with Lipitor with the target of getting it below 70. Even though I think that most likely this is atherosclerotic disease, she has had stroke in either hemisphere and it would be reasonable, if the echo if negative, to have some degree of long-term monitoring either if it is a Holter or loop recorder to look either for atrial fibrillation even though this is less likely possibility, it would make a change in her management. She also has an evidence of peripheral neuropathy and B12 and folic acid should be checked, but most likely this is from her diabetes. Thank you for sharing her case. [id number]/[facility] #: [id number] TAMEKA
[2018-09-15] MEDS: Atorvastatin* 40 MG TAB PO SCH (17:34)
[2018-09-15] MEDS: Insulin GLARGINE(*) 1 UNITS UNIT SUBCUT SCH (21:03)
[2018-09-16] MEDS: Heparin VIAL(*) 5000 UNITS/ML VIAL (FIVE THOUSAND) SUBCUT SCH ×3 (05:16→21:57)
[2018-09-16] MEDS: Insulin LISPRO* 1 UNITS UNIT SUBCUT SCH ×6 (08:05→16:56)
[2018-09-16] MEDS: Clopidogrel TAB* 75 MG PO SCH (08:38)
[2018-09-16] MEDS: Aspirin EC TAB* 81 MG TAB.EC PO SCH (08:38)
--- NOTE | 2018-09-16 14:16 | PN ---
Subjective Date of Service: 09/16/18 Interval History: Ms. Self is feeling ok today. She has been working with PT/OT/ST and is agreeable to going to rehab as she feels it will help her to be able to function when she returns home. Concerned about being able to navigate stairs. She can improve her dysarthria when she slows her speech. She reports that her DM got out of control after her surgery last year. Emotional about CVA diagnosis. Denies CP, SOB, N/V. Weakness remains unchanged. Family History: Unchanged from Admission Social History: Unchanged from Admission Past Medical History: Unchanged from Admission Objective Active Medications: Acetaminophen (Tylenol Tab*) 650 mg PO Q6H PRN FEVER/PAIN Aspirin (Aspirin Ec Tab*) 81 mg PO DAILY AUDREY Atorvastatin Calcium (Lipitor*) 40 mg PO 1700 AUDREY Clopidogrel Bisulfate (Plavix Tab*) 75 mg PO DAILY AUDREY Dextrose (D50w Syringe 50 Ml*) 12.5 gm IV PUSH .FOR FS < 60 - SS PRN FS < 60 Heparin Sodium (Porcine) (Heparin Vial(*)) 5,000 units SUBCUT Q8HR AUDREY Insulin Glargine (Lantus(*)) 73 units SUBCUT Q24H AUDREY Insulin Human Lispro (Humalog*) 5 units SUBCUT AC AUDREY Insulin Human Lispro (Humalog*) 0 units SUBCUT AC AUDREY; Protocol Ondansetron HCl (Zofran Inj*) 4 mg IV Q6H PRN NAUSEA Vital Signs - 8 hr 09/16/18 09/16/18 09/16/18 07:20 07:39 11:23 Temperature 97.9 F 97.2 F Pulse Rate 73 80 Respiratory 16 18 16 Rate Blood Pressure 161/79 120/78 (mmHg) O2 Sat by Pulse 100 99 Oximetry Oxygen Devices in Use Now: None Appearance: Middle-aged female sitting in chair in NAD Eyes: No Scleral Icterus Ears/Nose/Mouth/Throat: Mucous Membranes Moist Neck: NL Appearance and Movements; NL JVP, Trachea Midline Respiratory: Symmetrical Chest Expansion and Respiratory Effort, Clear to Auscultation Cardiovascular: NL Sounds; No Murmurs; No JVD, RRR Abdominal: NL Sounds; No Tenderness; No Distention Extremities: No Edema Skin: No Rash or Ulcers Neurological: Alert and Oriented x 3 Lines/Tubes/Other Access: Clean, Dry and Intact Peripheral IV Nutrition: Taking PO's Result Diagrams: 09/15/18 06:27 09/15/18 06:27 Assess/Plan/Problems-Billing Assessment: Ms. Self is a 58 yo F with PMH of DM2, HTN, and TIA; who presented with c/o 3 days of slurred speech and was found to have a thalamic CVA. - Patient Problems (1) CVA (cerebral vascular accident) Code(s): I63.9 - CEREBRAL INFARCTION, UNSPECIFIED Comment: - With right-sided deficits and dysarthria - CTA shows occulsion of right middle cerebral artery and 30% stenosis of the left internal carotid; MRI shows acute infarct of the left thalamus and subacute /chronic infarct of the right hemphill radiata - Echo with negative bubble study - Appreciate Neurology consult - Continue aspirin, Plavix (2) Hyperlipidemia Code(s): E78.5 - HYPERLIPIDEMIA, UNSPECIFIED Comment: - Lipid panel shows poor control with LDL 127 - Start atorvastatin (3) Diabetes type 2, uncontrolled Code(s): E11.65 - TYPE 2 DIABETES MELLITUS WITH HYPERGLYCEMIA Comment: - A1c 10.3% - Would benefit from outpatient f/u with Endocrinology; has seen Dr. Bah in the past and is open to going back to him - Continue lispro; increase Lantus (4) Hypertension Code(s): I10 - ESSENTIAL (PRIMARY) HYPERTENSION Comment: - Allowing for permissive hypertension with goal SBP 140-180 - Hold atenolol, but can likely resume this at d/c (5) Thyroid nodule Code(s): E04.1 - NONTOXIC SINGLE THYROID NODULE Comment: - Incidental finding on CTA - Will need thyroid US as an outpatient (6) DVT prophylaxis Comment: - Heparin SQ (7) Full code status Code(s): Z78.9 - OTHER SPECIFIED HEALTH STATUS Comment: Status and Disposition: Inpatient. Plan for d/c to [facility] on Wednesday. Attending: Nadya Friedman
[2018-09-16] MEDS: Atorvastatin* 40 MG TAB PO SCH (16:55)
[2018-09-16] MEDS ORDERED: Insulin GLARGINE(*) 1 UNITS UNIT SUBCUT SCH (22:00)
[2018-09-17] MEDS: Heparin VIAL(*) 5000 UNITS/ML VIAL (FIVE THOUSAND) SUBCUT SCH ×3 (06:30→21:49)
[2018-09-17] MEDS: Clopidogrel TAB* 75 MG PO SCH (08:07)
[2018-09-17] MEDS: Aspirin EC TAB* 81 MG TAB.EC PO SCH (08:07)
[2018-09-17] MEDS: Insulin LISPRO* 1 UNITS UNIT SUBCUT SCH ×6 (08:07→16:30)
--- NOTE | 2018-09-17 10:14 | PN ---
Subjective Date of Service: 09/17/18 Interval History: Ms. Self is feeling ok today. She feels as though her deficits are about the same as yesterday. She has been working on her speech therapy exercises. Feels tired often. Motivated to resume usual activities. Agreeable to d/c to [facility]. Family History: Unchanged from Admission Social History: Unchanged from Admission Past Medical History: Unchanged from Admission Objective Active Medications: Acetaminophen (Tylenol Tab*) 650 mg PO Q6H PRN FEVER/PAIN Aspirin (Aspirin Ec Tab*) 81 mg PO DAILY AUDREY Atorvastatin Calcium (Lipitor*) 40 mg PO 1700 AUDREY Clopidogrel Bisulfate (Plavix Tab*) 75 mg PO DAILY AUDREY Dextrose (D50w Syringe 50 Ml*) 12.5 gm IV PUSH .FOR FS < 60 - SS PRN FS < 60 Heparin Sodium (Porcine) (Heparin Vial(*)) 5,000 units SUBCUT Q8HR AUDREY Insulin Glargine (Lantus(*)) 75 units SUBCUT Q24H AUDREY Insulin Human Lispro (Humalog*) 5 units SUBCUT AC AUDREY Insulin Human Lispro (Humalog*) 0 units SUBCUT AC AUDREY; Protocol Ondansetron HCl (Zofran Inj*) 4 mg IV Q6H PRN NAUSEA Vital Signs - 8 hr 09/17/18 09/17/18 09/17/18 03:39 07:22 07:34 Temperature 97.3 F 98.1 F Pulse Rate 72 72 Respiratory 16 16 19 Rate Blood Pressure 148/64 146/71 (mmHg) O2 Sat by Pulse 97 98 Oximetry Oxygen Devices in Use Now: None Appearance: Middle-aged female sitting in chair in NAD Eyes: No Scleral Icterus Ears/Nose/Mouth/Throat: Mucous Membranes Moist Neck: NL Appearance and Movements; NL JVP, Trachea Midline Respiratory: Symmetrical Chest Expansion and Respiratory Effort, Clear to Auscultation Cardiovascular: NL Sounds; No Murmurs; No JVD, RRR Abdominal: NL Sounds; No Tenderness; No Distention Extremities: No Edema Skin: No Rash or Ulcers Neurological: Alert and Oriented x 3 Lines/Tubes/Other Access: Clean, Dry and Intact Peripheral IV Nutrition: Taking PO's Result Diagrams: 09/15/18 06:27 09/15/18 06:27 Assess/Plan/Problems-Billing Assessment: Ms. Self is a 58 yo F with PMH of DM2, HTN, and TIA; who presented with c/o 3 days of slurred speech and was found to have a thalamic CVA. - Patient Problems (1) CVA (cerebral vascular accident) Code(s): I63.9 - CEREBRAL INFARCTION, UNSPECIFIED Comment: - With right-sided deficits and dysarthria, unchanged from admission - CTA shows occulsion of right middle cerebral artery and 30% stenosis of the left internal carotid; MRI shows acute infarct of the left thalamus and subacute /chronic infarct of the right hemphill radiata - Echo with negative bubble study - Appreciate Neurology consult - Continue aspirin, Plavix (2) Hyperlipidemia Code(s): E78.5 - HYPERLIPIDEMIA, UNSPECIFIED Comment: - Lipid panel shows poor control with LDL 127 - Start atorvastatin (3) Diabetes type 2, uncontrolled Code(s): E11.65 - TYPE 2 DIABETES MELLITUS WITH HYPERGLYCEMIA Comment: - A1c 10.3% - Would benefit from outpatient f/u with Endocrinology; has seen Dr. Bah in the past and is open to going back to him - Continue lispro; increase Lantus to 75 units (4) Hypertension Code(s): I10 - ESSENTIAL (PRIMARY) HYPERTENSION Comment: - Allowing for permissive hypertension with goal SBP 140-180 - Hold atenolol, but can likely resume this at d/c (5) Thyroid nodule Code(s): E04.1 - NONTOXIC SINGLE THYROID NODULE Comment: - Incidental finding on CTA - Will need thyroid US as an outpatient (6) DVT prophylaxis Comment: - Heparin SQ (7) Full code status Code(s): Z78.9 - OTHER SPECIFIED HEALTH STATUS Comment: Status and Disposition: Inpatient. Plan for d/c to [facility] on Wednesday. Attending: Magdalena Hairston
[2018-09-17] MEDS: Atorvastatin* 40 MG TAB PO SCH (16:30)
[2018-09-17] MEDS ORDERED: Insulin GLARGINE(*) 1 UNITS UNIT SUBCUT SCH (22:00)
[2018-09-18] MEDS: Heparin VIAL(*) 5000 UNITS/ML VIAL (FIVE THOUSAND) SUBCUT SCH (06:18)
[2018-09-18] MEDS: Clopidogrel TAB* 75 MG PO SCH (08:50)
[2018-09-18] MEDS: Aspirin EC TAB* 81 MG TAB.EC PO SCH (08:50)
[2018-09-18] MEDS: Insulin LISPRO* 1 UNITS UNIT SUBCUT SCH ×2 (08:51)
[2018-09-18 11:37] VITALS: BP 144/65
--- NOTE | 2018-09-18 22:58 | DS ---
CC: Dr. Jennifer Ward; Dr. Ezequiel Jameson * DISCHARGE SUMMARY: DATE OF ADMISSION: 09/14/18 DATE OF DISCHARGE: 09/18/18 PRIMARY CARE PROVIDER: Dr. Jennifer Ward. NEUROLOGIST: Dr. Ezequiel Jameson. ATTENDING PHYSICIAN: Dr. Hairston * (dictated by Marianela Sharp NP) PRIMARY DIAGNOSES: 1. Thalamic cerebrovascular accident. 2. Thyroid nodule. SECONDARY DIAGNOSES: 1. Diabetes mellitus type 2, uncontrolled. 2. Hyperlipidemia. 3. Hypertension. STUDIES WHILE IN THE HOSPITAL: 1. Brain CT on 09/14/18 reads as there is age indeterminate asymmetric subcortical and periventricular white matter hypoattenuation involving the white matter tracts of the right frontal and parietal lobes. Differential diagnosis includes chronic microvascular disease versus subacute to chronic infarction. If the patient is exhibiting focal neurologic deficits, superior characterization can be made with MRI of the brain. Mild asymmetric enlargement of the right lateral ventricle relative to the left of unknown chronicity and indeterminate clinical significance. Also, incidentally noted is a septum cavum pellucidum of doubtful clinical significance. 2. EKG on 09/14/18 shows normal sinus rhythm with a rate of 64, QTc 428, no ischemic changes. 3. Head CTA on 09/14/18 reads as occlusion of the right middle cerebral artery. Some cortical branches are seen. No stenosis of the right internal carotid artery or vertebral artery. Calcified plaque in the proximal left internal carotid artery and carotid bulb with approximately 30% stenosis. The vertebral artery is patent. Hypodense nodule on the left thyroid lobe measuring 1.6 cm. Nonemergent ultrasound evaluation is suggested. 4. Brain MRI on 09/14/18 reads as acute infarct in the left thalamus measuring 9 x 7 mm. Subacute to chronic infarct of the right hemphill radiata. Right intraventricular cyst measuring 4.7 x 2.3 cm. 5. Transthoracic echocardiogram on 09/15/18 reads as the left ventricular chamber size is normal. Mild concentric left ventricular hypertrophy is observed. Global left ventricular wall motion and contractility are within normal limits. There is normal left ventricular systolic function. The estimated ejection fraction is 60% to 65%. The left atrium is mildly dilated. The right ventricular chamber size and systolic function are within normal limits. Moderate mitral annular calcification present. No other significant valvular abnormalities noted. The bubble study is negative. Compared to prior study from 10/05/17, no significant changes noted. HISTORY OF PRESENT ILLNESS AND HOSPITAL COURSE: Ms. Julian is a 58-year- old female with past medical history of diabetes, hypertension, and a possible TIA in 2018, who presented to the emergency room on 09/14/18 with complaints of 3 days of slurred speech. Please see the history and physical by KAROLINA Chester for complete summary of the events leading up to this hospitalization. In short, the patient had noted slurred speech approximately 3 days prior to admission that got progressively worse, then plateaued. She additionally noted some dysfunction and weakness in her right hand and some difficulty ambulating. She did not have any difficulty swallowing. She was recently started on atenolol for newly diagnosed hypertension. In the emergency room, she had imaging as noted above. She had unremarkable lab work and vitals were stable. Because of the acute CVA noted on imaging, the patient was admitted by the hospitalist service. The patient was seen in consultation by Dr. Jameson from Neurology, who felt as though the CVA was secondary to atherosclerotic disease and recommended treating with aspirin and Plavix for 3 months and then transitioning to Plavix alone. The patient had a lipid panel revealing triglycerides of 273, total cholesterol of 218, LDL of 127, and HDL of 36. She was started on atorvastatin per recommendations from Dr. Jameson. He recommended treating her elevated LDL for a target of less than 70. Dr. Jameson felt as though an echo with bubble study was necessary and felt as though the patient may also benefit from long- term monitoring with a Holter monitor or a loop recorder to assess for atrial fibrillation, though he felt as though that was not likely at this point. I did speak with Dr. Jameson who felt as though because the patient's symptoms had plateaued, she would likely be stable for discharge the following day on 09/03. The patient was seen by Physical Therapy, Occupational Therapy, and Speech Therapy and she did have acute needs with all three. The patient was evaluated by [facility] and she was deemed an appropriate candidate. Her insurance company authorized her stay in [facility] beginning on 09/18/18. The patient remained on telemetry monitoring on the telemetry floor until that point. She has had no evidence of atrial fibrillation. Her neurological deficits have remained stable. She does display some dysarthria as well as some right hand weakness and a somewhat abnormal gait due to right foot and leg weakness. The patient is quite agreeable to going to rehab and feels as though this will give her the best chance for recovery. I did speak with the on-call neurologist today to confirm that the patient was stable for discharge to [facility]. As of today , the patient reports feeling well and is anxious to participate in rehab in an attempt to lessen her stroke deficits. Ms. Julian is stable for discharge today. Vital signs are as follows: Temp 97.5, heart rate 75, respiratory rate 18, oxygen saturation 97% on room air , blood pressure 124/65. DISCHARGE MEDICATIONS: New medications: 1. Acetaminophen 650 mg p.o. q.6 hours p.r.n. fever, pain. 2. Atorvastatin 40 mg p.o. daily. 3. Clopidogrel 75 mg p.o. daily. 4. Lispro 5 units subcu a.c. 5. Lispro sliding scale subcu a.c., h.s. (for blood glucose 131 to 150 give 2 units, for 151 to 200 give 3 units, for 201 to 250 give 6 units, for 251 to 300 give 9 units, for 301 to 350 give 12 units, for 351 to 400 give 15 units). Continued medications: 1. Aspirin 81 mg p.o. daily. 2. Atenolol 25 mg p.o. daily. CHANGED MEDICATIONS: 1. Glargine 75 units subcu daily (was previously on Levemir 84 units daily prior to admission). DISCHARGE PLAN: Ms. Julian will be discharged to [facility] here at [facility]. Activity will be as tolerated. She has no restrictions and will need physical therapy, occupational therapy, and speech therapy while at rehab. Diet will be consistent carb. Medications are noted above. The patient should be maintained on aspirin and Plavix for 3 months. Her Lantus has been changed from her home dose, though this may need to be titrated more when she is in rehab in order to obtain appropriate glucose control. She has been started on atorvastatin for lipid control and she should continue this indefinitely. She will need to follow up with Neurology in approximately 1 month and she should follow up with her primary care provider after discharge from [facility]. I have advised the patient that it would be acosta for her to follow up with an linotyper due to her elevated A1c. She reports she has seen Dr. Bah in the past and would like to return to him. I will note that incidentally found was a thyroid nodule in the left lobe and I would recommend further evaluation of this with a thyroid ultrasound on a non-emergent basis. This should be arranged by her primary care provider. While the patient is in [facility], please do not hesitate to contact me with any further questions or concerns regarding her care. This is a summarized report of a complex medical history and hospital stay, for further details please see the entire medical record. TIME SPENT: Approximately 40 minutes were spent on this discharge. MARIANELA SHARP, MAGNETIC LOCATER [id number]/CPS #: [id number] TAMEKA
== END 2018-09-18 11:30 | DRG 45 ==
LOC: ED 16:15 → MEDTELE 21:01 → OBSVTOIN 09-15 14:37
PROVIDERS: ADMIT Pediatrics; ATTEND Internal Medicine
DX: I63.89 Other cerebral infarction (principal); G81.91 Hemiplegia, unspecified affecting right dominant side; E11.40 Type 2 diabetes mellitus with diabetic neuropathy, unspecified; I66.01 Occlusion and stenosis of right middle cerebral artery; E11.319 Type 2 diabetes mellitus with unspecified diabetic retinopathy without macular edema; E11.65 Type 2 diabetes mellitus with hyperglycemia; I65.22 Occlusion and stenosis of left carotid artery; R47.1 Dysarthria and anarthria; I10 Essential (primary) hypertension; E78.5 Hyperlipidemia, unspecified; E04.1 Nontoxic single thyroid nodule; Z79.4 Long term (current) use of insulin; Z79.82 Long term (current) use of aspirin; Z79.899 Other long term (current) drug therapy; Z88.1 Allergy status to other antibiotic agents; Z88.8 Allergy status to other drugs, medicaments and biological substances; Z91.048 Other nonmedicinal substance allergy status; Z80.7 Family history of other malignant neoplasms of lymphoid, hematopoietic and related tissues; Z80.0 Family history of malignant neoplasm of digestive organs; Z83.3 Family history of diabetes mellitus; Z81.8 Family history of other mental and behavioral disorders; Z86.73 Personal history of transient ischemic attack (TIA), and cerebral infarction without residual deficits
CPT/HCPCS: 36415; 70450; 70496; 70498; 70551; 80048; 80053; 80061; 81003; 83036; 83605; 83735; 84443; 84484; 85025; 85610; 85730; 93005; 93306; 97112; 97530; 99285; A9270-GY; G8978-GP-CJ; G8979-GP-CI; J1644; J2060; J3475; Q9967

== ENCOUNTER 2018-09-18 08:47 | Inpatient (IN) | payer BC ==
[2018-09-18] MEDS ORDERED: Magnesium Hydroxide LIQ* 30 ML UDC PO PRN (09:18)
[2018-09-18] MEDS ORDERED: Al Hydrox/Mg Hydrox/Simet LIQ* 30 ML UDC PO PRN (09:18)
[2018-09-18] MEDS ORDERED: Senna TAB PO PRN (09:18)
[2018-09-18] MEDS ORDERED: Acetaminophen TAB* 325 MG PO PRN (09:18)
[2018-09-18] MEDS ORDERED: Dextrose 50% Syringe 50 ML* 25 GM/50 ML SYRINGE IV PUSH PRN (09:26)
[2018-09-18] MEDS: Insulin LISPRO* 1 UNITS UNIT SUBCUT SCH ×5 (12:09→20:46)
--- NOTE | 2018-09-18 13:52 | HP ---
CC: Dr. Jennifer Ward; Dr. Jameson * HISTORY AND PHYSICAL: DATE OF ADMISSION: 09/18/18 PRIMARY CARE PROVIDER: Dr. Jennifer Ward. NEUROLOGIST: Dr. Jameson. REASON FOR ADMISSION: Left thalamic stroke. HISTORY OF PRESENT ILLNESS: This is a 58-year-old woman who in September of 2017 had brief episodes of slurred speech. This happened over the course of a few days, but she did not rule in for a stroke at that time. She took her diabetes control very seriously and was able to get her hemoglobin A1c down by 2 points, but then in February of 2018 had a cholecystectomy and since then has had difficulty with her diabetes and overall just has not felt very well. Three days prior to admission this time, she developed slurred speech and later some decreased coordination with her right hand and difficulty eating. She then had difficulty ambulating and came to the hospital on 09/14/18. CTA on 09/14/18 showed a right MCA occlusion as well as plaque in the proximal left internal carotid artery. There was approximately 30% stenosis of the carotid bulb on the left side. MRI of the brain on 09/14/18 showed a left thalamic infarct measuring 9 x 7 mm, subacute to chronic infarct in the right hemphill radiata, and right intraventricular cyst measuring 4.7 x 2.3 cm. Transthoracic echo on showed mild LVH and ejection fraction of 60 to 65%. She had a negative bubble study. She was seen by Neurology and put on dual- antiplatelet therapy with Plavix and baby aspirin. Plans for her to stay on this for 3 months, then transition to Plavix alone. She was also started on atorvastatin. Given the bilateral findings on MRI, it was felt that in the future she should have a Holter or a loop recorder to further evaluate for arrhythmia that could contribute to stroke. She was seen by her primary care provider prior to her admission and had just started using atenolol for blood pressure control. This has been held during her stay for permissive hypertension. Prior to admission, she was independent with all mobilities and ADLs. With speech therapy, she has been noted to have ataxic dysarthria. With occupational therapy, she has required minimal assistance for toileting, dressing, and feeding. With physical therapy, she has required contact guard assistance with cues for transferring and ambulating using a rolling walker. PAST MEDICAL HISTORY: 1. Poorly-controlled diabetes mellitus, insulin dependent. 2. Hypertension. 3. History of possible TIA in September of 2017. 4. Diabetic retinopathy, for which she has been receiving ocular shots. She has 2 more left to have and will be been missing those due to this hospitalization. 5. Status post cholecystectomy in February 2018. 6. Status post . 7. Thyroid nodules, incidental finding on her imaging when she arrived here. She needs a thyroid ultrasound in the future as an outpatient. 8. Peripheral neuropathy secondary to diabetes affecting the palms of her feet. 9. History of cellulitis affecting her right second toe last year. CURRENT MEDICATIONS: 1. Enteric-coated aspirin 81 mg daily. 2. Heparin 5000 units subcutaneously q.8 hours for DVT prophylaxis. 3. Lispro 5 units before each meal as well as Humalog sliding scale before meals. 4. Lantus 75 units q.h.s. 5. Lipitor 40 mg q.p.m. 6. Plavix 75 mg daily. 7. Tylenol p.r.n. ALLERGIES: RAMIPRIL, TAPE, AMOXICILLIN, CLAVULANIC ACID, LEVOFLOXACIN, and ERYTHROMYCIN. FAMILY HISTORY: Mother, lymphoma and colon cancer. Father, multiple myeloma. Sister, thyroid cancer and diabetes mellitus. Brother, anxiety. SOCIAL HISTORY: She lives with her , Edson Kaufman who is her healthcare proxy. His number is [phone]. They live in [place]. She has a grown daughter. Who is in [place]. No smoking. Occasional alcohol. Her home has no steps to enter, but does have 2 floors with a flight of stairs in between. She enjoys crocheting. 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 REVIEW OF SYSTEMS: See history of present illness and past medical history. The remainder of a 13-system review is completed. No other significant findings. PHYSICAL EXAMINATION GENERAL: Well-developed, well-nourished, overweight. Mental Status: No acute distress. Alert and oriented x3. VITAL SIGNS: Temperature 97.2, heart rate 74, respirations 20, oxygenation 97% on room air, blood pressure 155/67. Her fingersticks in the last 24 hours have ranged between 125 to 165. HEENT: Normocephalic, atraumatic. Oropharynx is clear. Moist mucous membranes. LUNGS: Clear to auscultation bilaterally. ABDOMEN: Active bowel sounds. Soft, nontender, nondistended. EXTREMITIES: No clubbing, cyanosis, or edema. MUSCULOSKELETAL: She has functional range of motion of all of her major joints. NEUROLOGICAL: Cranial nerves II through XII are intact, but she clearly has dysarthric speech. Right upper extremity motor shows 4/5 arm flexion, 4+/5 deltoid, 4+/5 biceps, 4+/5 triceps, 4+/5 ECR, 4/5 finger abduction. In the right lower extremity motor, 5/5 throughout with some incoordination with heel- to-buitrago on the right side. Left upper and lower extremity motor is 5/5 throughout. Positive right dysmetria. Positive right pronator drift. Sensation is intact in all 4 extremities, although she reports some diminished sensation on the plantar aspects of both feet. LABORATORY DATA: Hemoglobin A1c was 10.3 at admission. IMPRESSION: A 58-year-old woman with poorly controlled diabetes mellitus, diabetic retinopathy and diabetic peripheral neuropathy with acute ischemic left thalamic stroke. She will be admitted to [facility], so she can return to living independently. PLAN: 1. Stroke. Continue with Plavix and aspirin for 3 months, then transition to Plavix alone. Continue Lipitor. Follow up with Neurology as needed. 2. Poorly-controlled diabetes mellitus. She has seen Dr. Bah in the past and the primary team has recommended followup with him. Continue with Lantus, lispro and consistent carbohydrate diet. Nutrition has been consulted to assist her with appropriate dietary choices. 3. Hypertension. She had just started atenolol before hospitalization. Currently, permissive hypertension has been allowed and she has been off of atenolol. Consider starting a beta-fox at a lower dose if needed. 4. Thyroid nodule, discovered incidentally on imaging. This needs to be followed up as an outpatient with ultrasound and further evaluation. 5. DVT prophylaxis. Subcutaneous heparin. 6. Impaired mobility. She will be seen by Physical Therapy for bed mobility, transfer, gait, and stair training using the least restrictive assistive device. 7. Impaired self-care. She will be seen by Occupational Therapy for ADL, IADL training and equipment evaluation. 8. Ataxic dysarthria. She will be seen by Speech Therapy to improve her intelligibility. She passed her swallow test on the acute care service. 9. Advance directives. She is a full code. Her , Edson Kaufman is her healthcare proxy if she cannot decisions for herself. His phone number is [phone]. ESTIMATED LENGTH OF STAY: Five to seven days and return to home with family support. [id number]/CPS #: [id number] MTDD
[2018-09-18] MEDS: Heparin VIAL(*) 5000 UNITS/ML VIAL (FIVE THOUSAND) SUBCUT SCH ×2 (14:00→22:04)
[2018-09-18] MEDS: Atorvastatin* 40 MG TAB PO SCH (17:16)
[2018-09-18 17:37] LABS: Folate 17.51 ng/mL (>3.99)
[2018-09-18] MEDS: Insulin GLARGINE(*) 1 UNITS UNIT SUBCUT SCH (20:47)
[2018-09-18] MEDS: Docusate CAP* 100 MG PO SCH (21:49)
[2018-09-19 05:16] LABS: Albumin 3.7 g/dL (3.2-5.2); Albumin/Globulin Ratio 1.3 (1-3); BUN/Creatinine Ratio 23.1 (8-20); Calcium 9.4 mg/dL (8.6-10.3); EGFR African American 92.1 (>60); EGFR Non-African American 76.1 (>60); Globulin 2.8 g/dL (2-4); Potassium 3.8 mmol/L (3.5-5.0); Total Bilirubin 0.6 mg/dL (0.2-1.0); Total Protein 6.5 g/dL (6.4-8.9)
[2018-09-19 05:18] LABS: ABS Basophils 0.1 10^3/ul (0-0.2); ABS Eosinophils 0.1 10^3/ul (0-0.6); ABS Monocytes 0.8 10^3/ul (0-0.8); ABS Neutrophils 3.5 10^3/ul (1.5-7.7); ABS Nucleated RBC 0 10^3/ul; Eosinophil % 1.8 %; Hematocrit 41 % (35-47); Hemoglobin 13.8 g/dl (12.0-16.0); Lymphocyte % 40.6 %; Mean Corpuscular HGB Conc 34 g/dl (31-36); Mean Corpuscular Hemoglobin 30 pg (27-31); Mean Corpuscular Volume 89 fL (80-97); Mean Platelet Volume 9.3 fL (7.4-10.4); Nucleated Red Blood Cells % 0.1; Platelet Count 269 10^3/ul (150-450); Red Blood Count 4.56 10^6/ul (4.00-5.40); Red Cell Distribution Width 13 % (10.5-15); White Blood Count 7.5 10^3/ul (3.5-10.8)
[2018-09-19] MEDS: Heparin VIAL(*) 5000 UNITS/ML VIAL (FIVE THOUSAND) SUBCUT SCH ×3 (06:47→22:09)
[2018-09-19] MEDS: Insulin LISPRO* 1 UNITS UNIT SUBCUT SCH ×7 (08:01→20:49)
[2018-09-19] MEDS: Clopidogrel TAB* 75 MG PO SCH (08:01)
[2018-09-19] MEDS: Aspirin EC TAB* 81 MG TAB.EC PO SCH (08:01)
[2018-09-19] MEDS: Docusate CAP* 100 MG PO SCH ×2 (08:01→20:49)
--- NOTE | 2018-09-19 18:16 | PN ---
Progress Note Date of Service: 09/19/18 Note: LORENA ODOM was visited. Therapy notes read and reviewed. She complains of right arm clumsiness. Her blood sugars are in fairly good control. She is in good spirits. Current Medications: Active Medications Generic Name Dose Route Start Last Admin Trade Name Freq PRN Reason Stop Dose Admin Acetaminophen 650 mg 09/18/18 09:18 Tylenol Tab* PO Q4H PRN FEVER > 101 Al Hydrox/Mg Hydrox/Simethicone 30 ml 09/18/18 09:18 Maalox Plus* PO Q6H PRN INDIGESTION Aspirin 81 mg 09/19/18 09:00 09/19/18 08:01 Aspirin Ec Tab* PO 81 mg DAILY AUDREY Administration Atorvastatin Calcium 40 mg 09/18/18 17:00 09/18/18 17:16 Lipitor* PO 40 mg 1700 AUDREY Administration Clopidogrel Bisulfate 75 mg 09/19/18 09:00 09/19/18 08:01 Plavix Tab* PO 75 mg DAILY AUDREY Administration Dextrose 12.5 gm 09/18/18 09:26 D50w Syringe 50 Ml* IV PUSH .FOR FS < 60 - SS PRN FS < 60 Docusate Sodium 100 mg 09/18/18 21:00 09/19/18 08:01 Colace Cap* PO Not Given BID AUDREY Heparin Sodium (Porcine) 5,000 units 09/18/18 14:00 09/19/18 14:05 Heparin Vial(*) SUBCUT 5,000 units Q8HR AUDREY Administration Insulin Glargine 75 units 09/18/18 21:00 09/18/18 20:47 Lantus(*) SUBCUT 75 units BEDTIME AUDREY Administration Insulin Human Lispro 5 units 09/18/18 11:30 09/19/18 12:14 Humalog* SUBCUT 5 units AC AUDREY Administration Insulin Human Lispro 0 units 09/18/18 11:30 09/19/18 12:15 Humalog* SUBCUT 3 units ACHS AUDREY Administration Protocol Magnesium Hydroxide 30 ml 09/18/18 09:18 Milk Of Magnesia Liq* PO Q6H PRN CONSTIPATION Senna 2 tab 09/18/18 09:18 Senokot Tab* PO BEDTIME PRN CONSTIPATION Vital Signs: Vital Signs Temp Pulse Resp BP Pulse Ox 97.4 F 78 20 145/82 100 09/19/18 16:54 09/19/18 16:54 09/19/18 17:46 09/19/18 16:54 09/19/18 17:46 Lab Results: Laboratory Results - last 24 hr 09/18/18 09/19/18 09/19/18 20:23 04:47 04:49 WBC 7.5 RBC 4.56 Hgb 13.8 Hct 41 MCV 89 MCH 30 MCHC 34 RDW 13 Plt Count 269 MPV 9.3 Neut % (Auto) 46.4 Lymph % (Auto) 40.6 Dawes % (Auto) 10.3 Eos % (Auto) 1.8 Baso % (Auto) 0.9 Absolute Neuts (auto) 3.5 Absolute Lymphs (auto) 3.0 Absolute Monos (auto) 0.8 Absolute Eos (auto) 0.1 Absolute Basos (auto) 0.1 Absolute Nucleated RBC 0 Nucleated RBC % 0.1 Sodium 138 Potassium 3.8 Chloride 103 Carbon Dioxide 28 Anion Gap 7 BUN 18 Creatinine 0.78 Est GFR ( Amer) 92.1 Est GFR (Non-Af Amer) 76.1 BUN/Creatinine Ratio 23.1 H Glucose 169 H POC Glucose (mg/dL) 152 H Calcium 9.4 Total Bilirubin 0.60 AST 19 ALT 20 Alkaline Phosphatase 51 Total Protein 6.5 Albumin 3.7 Globulin 2.8 Albumin/Globulin Ratio 1.3 09/19/18 09/19/18 11:51 16:53 WBC RBC Hgb Hct MCV MCH MCHC RDW Plt Count MPV Neut % (Auto) Lymph % (Auto) Dawes % (Auto) Eos % (Auto) Baso % (Auto) Absolute Neuts (auto) Absolute Lymphs (auto) Absolute Monos (auto) Absolute Eos (auto) Absolute Basos (auto) Absolute Nucleated RBC Nucleated RBC % Sodium Potassium Chloride Carbon Dioxide Anion Gap BUN Creatinine Est GFR ( Amer) Est GFR (Non-Af Amer) BUN/Creatinine Ratio Glucose POC Glucose (mg/dL) 158 H 152 H Calcium Total Bilirubin AST ALT Alkaline Phosphatase Total Protein Albumin Globulin Albumin/Globulin Ratio Exam: HEENT: NC/AT. EOMI LUNGS: Clear bilaterally HEART: Reg rhythm ABDOMEN: Soft EXTREMITIES: No edema NEUROLOGIC: Dysarthria. Right arm 4+/5 but clumsy. Assessment/Plan: 1. 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 DAPT for 90 days, then Plavix. Lipitor. May need loop recorder 2. DM: Lantus/Lispro 3. DVT Prophylaxis: Heparin S/Q 4. Advanced Directives: Full code. is HCP 5. Thyroid nodule: will need follow up as outpt 6. Diabetic Retinopathy: Will need f/u as outpt 09/19/18 18:16 09/19/18 18:19 09/19/18 18:20
[2018-09-19] MEDS: Atorvastatin* 40 MG TAB PO SCH (18:31)
[2018-09-19] MEDS: Insulin GLARGINE(*) 1 UNITS UNIT SUBCUT SCH (20:50)
[2018-09-20] MEDS: Heparin VIAL(*) 5000 UNITS/ML VIAL (FIVE THOUSAND) SUBCUT SCH ×3 (05:48→21:15)
[2018-09-20] MEDS: Insulin LISPRO* 1 UNITS UNIT SUBCUT SCH ×7 (07:56→21:04)
[2018-09-20] MEDS: Aspirin EC TAB* 81 MG TAB.EC PO SCH (07:58)
[2018-09-20] MEDS: Clopidogrel TAB* 75 MG PO SCH (07:58)
[2018-09-20] MEDS: Docusate CAP* 100 MG PO SCH ×2 (07:58→21:01)
--- NOTE | 2018-09-20 12:26 | PMRUTEAM ---
PMRU: Team Meeting Current Status: Nursing: Current Status Skin Deviations [Left Foot] Other Skin Deviation Description [ dry Left Foot] Physical Therapy: Current Status Bed Mobility Assistance Supervision Transfer Mobility Assistance Supervision,Contact Guard Assist Transfer/Bed Mobility Rolling Walker Recommended Devices Ambulation Assistance Supervision,Contact Guard Assist Ambulation Assistive Devices Rolling Walker Number of Feet Patient 150 Ambulated Stairs Assistance Contact Guard Assist Stairs Recommended Devices Two Rails Number of Stairs 2x5 Occupational Therapy: Current Status Upper Body Dressing Supervision Upper Body Dressing Progress setupA Lower Body Dressing Supervision,Contact Guard Assist Bathing Supervision,Contact Guard Assist Toileting Supervision Toilet Transfer Supervision Shower Transfer Contact Guard Assist,Min Assist Eating Supervision Eating Progress built up foam utensils Rec Therapy: Current Status Summary of Assessment and Pt. was open to conversation - engaged and Clinical Impression cooperative throughout. Pt. expressed interest in leisure activities while on the unit and was provided with crocheting supplies which she began using right away. Pt. states she was active in leisure prior to admission. Treatment Goals Pt. will engage in leisure activities while on the unit. Treatment Plan Provide RT services and encourage involvement. Social Work: Current Status Discharge Plan return home with home care svs and family support Potential for Family Training pt's is involved and supportive Anticipated Discharge Home Destination Discharge With home care svs and family support Nutrition: Current Status Monitoring Pt admitted to [facility] s/p CVA; eating adequately on consistent carb diet. Consult received for pt with uncontrolled diabetes; pt with adequately controlled BG in inpt setting, though note elevated A1c of 10.3% as of 09/15/18 indicating poor mcc control. Pt did receive appropriate instruction during acute care stay (see Nutrition Assessment from 09/16). Attempted to visit this afternoon, but pt with another staff person. Will follow up for any related ed needs, but no acute concerns identified at this time. NO difficulty chewing/swallowing per nursing assessments (acute stay). Formed BM noted 09/17. Goals: Physical Therapy: Initial Goals Bed Mobility Assistance Independent Transfer Mobility Assistance Independent Transfer/Bed Mobility Rolling Walker Recommended Devices Ambulation Independent Ambulation Recommended Devices Rolling Walker Ambulation Distance 150 Stairs Assistance Independent Stair Recommended Devices Two Rails Number of Stairs 12 Home Exercise Program Independent Assistance Physical Therapy: Updated Goals Transfer/Bed Mobility Rolling Walker Recommended Devices Occupational Therapy: Initial Goals Goals to be Completed in (Days 5 ) Upper Body Bathing Routine Modified Independent with Lower Body Bathing Routine Modified Independent with Upper Body Dressing Routine Independent Lower Body Dressing Routine Modified Independent with Toilet Hygeine and Clothing Modified Independent with Management Routine Toilet Transfer Routine Modified Independent with Step-In Shower Transfer Modified Independent with Routine Functional Transfers for ADL Modified Independent with Grooming Routine Independent,Modified Independent with Feeding Routine Independent,Modified Independent with Nutrition: Goals Intervention Goals 1. Intake will remain adequate to maintain stable wt without excess wt gain 2. BG will remain adequately controlled per inpt parameters 3. Pt will maintain regular bowel pattern without constipation/diarrhea 4. Any ed needs will be addressed prior to d/c as needed Speech: Goals Speech Goal 1 Motor Speech Goal 1 Comments Long-Term Goal 1: Pt will I'ly speak with 100% intelligibility Short-Term Goal 1: Pt will use compensatory strategies to increase speech to intelligibility to 95% in spontaneous conversational speech, given minimal cueing. Speech Goal 2 Motor Speech Speech Goal 2 Comments Long-Term Goal 2: Pt will I'ly sing on pitch with greater than one octave pitch range. Short-Term Goal 2: Pt will use vocal exercises and compensatory strategies to sing sequences of intervals up to one octave to within 90% accuracy, as measured by pitch meter Speech Goal 3 Motor Speech Speech Goal 3 Comments Long-Term Goal 3: The patient will independently and successfully complete diaphragmatic breath support and control exercises with 90% accuracy, with carryover to home, community Short Term Goal 3: Pt will complete sustained phonation tasks for /a/ phoneme to maintain appropriate steady appropriate volume in 5/5 trials with use of trained self-monitoring techniques/stopwatch. Social Work: Goals Discharge Plan return home with home care svs and family support Potential for Family Training pt's is involved and supportive Anticipated Discharge Home Destination Discharge With home care svs and family support Care Plan: Care Plan ADL's - Improve/Maintain Start: 09/18/18 15:07 Freq: DAILY Status: Active Target: Protocol: Activity Type Activity Date Activity User E-Sign Co-Sign Detail Recorded Client Recorded Date Recorded By Document 09/20/18 11:18 [id number] [id number] 09/20/18 11:18 [id number] 09/20/18 11:18 PMRU Outcome: ADL's/ADL Transfers Orders/Interventions Occupational Therapy Evaluation & Treatment Communication Tool in Patient Room Device Yes Address Deficits Secondary To: CVA Patient to receive OT 5x/wk for 60-120 Therex min/day Self Care Management Group Therapy Neuromuscular ReEducation UE/LE ADL's with Assist Yes: Isaias ADL Transfers with Assist Yes: Isaias Toileting: Transfers,Clothing Management Yes: Isaias ,Hygeine w/Assist Progression Toward Outcome/Goals Progressing Outcome/Goals Met Pt participated well in ADL treatment session, steady in standing during bathing/ dressing this date. Cues provided to sit to doff pants over feet and thread pants over feet to increase safety . Pt progressing well and remains motivated to participate to maximize independence and safety. Communication-Improve/Maintain Start: 09/19/18 19:36 Freq: DAILY Status: Active Target: Protocol: Activity Type Activity Date Activity User E-Sign Co-Sign Detail Recorded Client Recorded Date Recorded By Document 09/20/18 01:50 [id number] [id number] 09/20/18 01:51 [id number] 09/20/18 01:50 PMRU Outcome: Communication/Cognitive Status Outcome/Goals Makes Needs Known Effectively Other Outcomes/Goals Long-Term Goal 1: Pt will I' ly speak with 100% intelligibility Short-Term Goal 1: Pt will use compensatory strategies to increase speech to intelligibility to 95% in spontaneous conversational speech, given minimal cueing. Long-Term Goal 2: Pt will I' ly sing on pitch with greater than one octave pitch range. Short-Term Goal 2: Pt will use vocal exercises and compensatory strategies to sing sequences of intervals up to one octave to within 90% accuracy, as measured by pitch meter Long-Term Goal 3: The patient will independently and successfully complete diaphragmatic breath support and control exercises with 90% accuracy, with carryover to home, community Short Term Goal 3: Pt will complete sustained phonation tasks for /a/ phoneme for 15 sec. with steady appropriate volume in 5/5 trials with use of trained self-monitoring techniques/ stopwatch. DVT Prophylaxis- Improve/Maintain Start: 09/18/18 15:07 Freq: QSHIFT Status: Active Target: Protocol: Activity Type Activity Date Activity User E-Sign Co-Sign Detail Recorded Client Recorded Date Recorded By Document 09/20/18 01:50 [id number] 09/20/18 01:51 [id number] 09/20/18 01:50 PMRU Outcome: DVT Prophylaxis Outcome/Goals Remains Free of DVT Complies with DVT Prophylaxis /Treatment TEDS Stockings on Every AM, Off at HS Progression Toward Outcome/Goals Progressing Discharge Planning - Improve/Maintain Start: 09/18/18 15:07 Freq: DAILY Status: Active Target: Protocol: Activity Type Activity Date Activity User E-Sign Co-Sign Detail Recorded Client Recorded Date Recorded By Document 09/20/18 01:51 [id number] [email or web address] 09/20/18 01:51 [id number] 09/20/18 01:51 PMRU Outcome: Discharge Planning Update Patient Family No Outcome/Goals Demonstrates Understanding of Discharge Plan Education-Improve/Maintain Start: 09/18/18 15:07 Freq: QSHIFT Status: Active Target: Protocol: Activity Type Activity Date Activity User E-Sign Co-Sign Detail Recorded Client Recorded Date Recorded By Document 09/20/18 01:50 [id number] [id number] 09/20/18 01:51 [id number] 09/20/18 01:50 PMRU Outcome: Education Outcome/Goals Demonstrate/ Verbalize Understanding of Written Discharge Instructions Demonstrates Skills Encourage Questions Progression Toward Outcome/Goals Progressing Metabolic Status- Improve/Maintain Start: 09/18/18 15:07 Freq: QSHIFT Status: Active Target: Protocol: Activity Type Activity Date Activity User E-Sign Co-Sign Detail Recorded Client Recorded Date Recorded By Document 09/20/18 01:50 [id number] 09/20/18 01:51 [id number] 09/20/18 01:50 PMRU Outcome: Metabolic Status Have Fingersticks Been Ordered Yes Fingerstick Order Frequency AC & HS Outcome/Goals Maintain/ Improve Metabolic Status Demonstrate Knowledge of Prevention/ Treatment of Metabolic Imbalances Progression Toward Outcome/Goals Progressing Neurological- Improve/Maintain Start: 09/18/18 15:07 Freq: QSHIFT Status: Active Target: Protocol: Activity Type Activity Date Activity User E-Sign Co-Sign Detail Recorded Client Recorded Date Recorded By Document 09/20/18 01:50 [id number] 09/20/18 01:51 [id number] 09/20/18 01:50 PMRU Outcome: Neurological Weakness/Aphasia Weakness Right Side Weakness/Aphasia Comment motor responses uncoordinated Outcome/Goals Maintain/ Achieve Baseline Neurological Status Improve Neurological Status Maintain/ Improve Strength/ROM Progression Toward Outcome/Goals Progressing Safety- Improve/Maintain Start: 09/18/18 15:07 Freq: QSHIFT Status: Active Target: Protocol: Activity Type Activity Date Activity User E-Sign Co-Sign Detail Recorded Client Recorded Date Recorded By Document 09/20/18 01:50 [id number] 09/20/18 01:51 [id number] 09/20/18 01:50 PMRU Outcome: Safety Outcome/Goals Remain Free of Injury or Harm Cooperates with Safety Measures for Least Restrictive Environment Prevent Falls/ Injury Progression Toward Outcome/Goals Progressing Outcome/Goals Met Comment BA armed Medicine Note: Length of Stay: 3 days Anticipated Discharge Destination: Home Tentative Discharge Date: 09/23/18 Discharged to: Home
[2018-09-20] MEDS: Atorvastatin* 40 MG TAB PO SCH (17:12)
--- NOTE | 2018-09-20 19:01 | PN ---
Progress Note Date of Service: 09/20/18 Note: LORENA ODOM was visited. Therapy notes read and reviewed. She was discussed in interdisciplinary team rounds. She made gains with therapies but her right arm remains clumsy Current Medications: Active Medications Generic Name Dose Route Start Last Admin Trade Name Freq PRN Reason Stop Dose Admin Acetaminophen 650 mg 09/18/18 09:18 Tylenol Tab* PO Q4H PRN FEVER > 101 Al Hydrox/Mg Hydrox/Simethicone 30 ml 09/18/18 09:18 Maalox Plus* PO Q6H PRN INDIGESTION Aspirin 81 mg 09/19/18 09:00 09/20/18 07:58 Aspirin Ec Tab* PO 81 mg DAILY AUDREY Administration Atorvastatin Calcium 40 mg 09/18/18 17:00 09/20/18 17:12 Lipitor* PO 40 mg 1700 AUDREY Administration Clopidogrel Bisulfate 75 mg 09/19/18 09:00 09/20/18 07:58 Plavix Tab* PO 75 mg DAILY AUDREY Administration Dextrose 12.5 gm 09/18/18 09:26 D50w Syringe 50 Ml* IV PUSH .FOR FS < 60 - SS PRN FS < 60 Docusate Sodium 100 mg 09/18/18 21:00 09/20/18 07:58 Colace Cap* PO Not Given BID AUDREY Heparin Sodium (Porcine) 5,000 units 09/18/18 14:00 09/20/18 14:08 Heparin Vial(*) SUBCUT 5,000 units Q8HR AUDREY Administration Insulin Glargine 75 units 09/18/18 21:00 09/19/18 20:50 Lantus(*) SUBCUT 75 units BEDTIME AUDREY Administration Insulin Human Lispro 5 units 09/18/18 11:30 09/20/18 17:11 Humalog* SUBCUT 5 units AC AUDREY Administration Insulin Human Lispro 0 units 09/18/18 11:30 09/20/18 17:11 Humalog* SUBCUT 3 units ACHS AUDREY Administration Protocol Magnesium Hydroxide 30 ml 09/18/18 09:18 Milk Of Magnesia Liq* PO Q6H PRN CONSTIPATION Senna 2 tab 09/18/18 09:18 Senokot Tab* PO BEDTIME PRN CONSTIPATION Vital Signs: Vital Signs Temp Pulse Resp BP Pulse Ox 98.0 F 80 20 136/76 99 09/20/18 16:38 09/20/18 16:38 09/20/18 16:38 09/20/18 16:38 09/20/18 16:38 Lab Results: Laboratory Results - last 24 hr 09/19/18 09/20/18 09/20/18 20:17 07:32 11:46 POC Glucose (mg/dL) 155 H 133 H 134 H 09/20/18 16:34 POC Glucose (mg/dL) 158 H Exam: HEENT: NC/AT. EOMI LUNGS: Clear bilaterally HEART: Reg rhythm ABDOMEN: Soft EXTREMITIES: No edema NEUROLOGIC: Dysarthria. Right arm 4+/5 but clumsy. Assessment/Plan: 1. 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 ASA/Plavix. DAPT for 90 days, then Plavix. Lipitor. May need loop recorder 2. DM: Lantus/Lispro 3. DVT Prophylaxis: Heparin S/Q 4. Advanced Directives: Full code. is HCP 5. Thyroid nodule: will need follow up as outpt 6. Diabetic Retinopathy: Will need f/u as outpt 09/20/18 19:01
[2018-09-20] MEDS: Insulin GLARGINE(*) 1 UNITS UNIT SUBCUT SCH (21:04)
[2018-09-21] MEDS: Heparin VIAL(*) 5000 UNITS/ML VIAL (FIVE THOUSAND) SUBCUT SCH ×3 (05:59→21:47)
[2018-09-21] MEDS: Insulin LISPRO* 1 UNITS UNIT SUBCUT SCH ×7 (09:45→21:49)
[2018-09-21] MEDS: Aspirin EC TAB* 81 MG TAB.EC PO SCH (10:17)
[2018-09-21] MEDS: Clopidogrel TAB* 75 MG PO SCH (10:17)
[2018-09-21] MEDS: Docusate CAP* 100 MG PO SCH ×2 (10:17→21:45)
[2018-09-21] MEDS: Atorvastatin* 40 MG TAB PO SCH (16:58)
[2018-09-21] MEDS: Artificial Tears* 15 ML BTL BOTH EYES PRN ×2 (19:01→21:46)
--- NOTE | 2018-09-21 20:13 | PN ---
Progress Note Date of Service: 09/21/18 Note: LORENA ODOM was visited. Therapy notes read and reviewed. She is moving well and was able to do stairs today. BS okay on current meds/diet. Current Medications: Active Medications Generic Name Dose Route Start Last Admin Trade Name Freq PRN Reason Stop Dose Admin Acetaminophen 650 mg 09/18/18 09:18 Tylenol Tab* PO Q4H PRN FEVER > 101 Al Hydrox/Mg Hydrox/Simethicone 30 ml 09/18/18 09:18 Maalox Plus* PO Q6H PRN INDIGESTION Aspirin 81 mg 09/19/18 09:00 09/21/18 10:17 Aspirin Ec Tab* PO 81 mg DAILY AUDREY Administration Atorvastatin Calcium 40 mg 09/18/18 17:00 09/21/18 16:58 Lipitor* PO 40 mg 1700 AUDREY Administration Clopidogrel Bisulfate 75 mg 09/19/18 09:00 09/21/18 10:17 Plavix Tab* PO 75 mg DAILY AUDREY Administration Dextrose 12.5 gm 09/18/18 09:26 D50w Syringe 50 Ml* IV PUSH .FOR FS < 60 - SS PRN FS < 60 Docusate Sodium 100 mg 09/18/18 21:00 09/21/18 10:17 Colace Cap* PO 100 mg BID AUDREY Administration Heparin Sodium (Porcine) 5,000 units 09/18/18 14:00 09/21/18 14:01 Heparin Vial(*) SUBCUT 5,000 units Q8HR AUDREY Administration Insulin Glargine 75 units 09/18/18 21:00 09/20/18 21:04 Lantus(*) SUBCUT 75 units BEDTIME AUDREY Administration Insulin Human Lispro 5 units 09/18/18 11:30 09/21/18 16:59 Humalog* SUBCUT 5 units AC AUDREY Administration Insulin Human Lispro 0 units 09/18/18 11:30 09/21/18 17:00 Humalog* SUBCUT 3 units ACHS AUDREY Administration Protocol Magnesium Hydroxide 30 ml 09/18/18 09:18 Milk Of Magnesia Liq* PO Q6H PRN CONSTIPATION Polyvinyl Alcohol 1 drop 09/21/18 18:45 09/21/18 19:01 Polyvinyl Alcohol 1.4% Opth* BOTH EYES 1 drop Q2H PRN Administration DRY EYE Senna 2 tab 09/18/18 09:18 Senokot Tab* PO BEDTIME PRN CONSTIPATION Vital Signs: Vital Signs Temp Pulse Resp BP Pulse Ox 97.4 F 73 19 141/64 97 09/21/18 16:06 09/21/18 16:06 09/21/18 19:06 09/21/18 16:06 09/21/18 19:18 Lab Results: Laboratory Results - last 24 hr 09/20/18 09/21/18 09/21/18 20:09 07:44 11:37 POC Glucose (mg/dL) 131 H 119 H 171 H 09/21/18 16:01 POC Glucose (mg/dL) 153 H Exam: HEENT: NC/AT. EOMI LUNGS: Clear bilaterally HEART: Reg rhythm ABDOMEN: Soft EXTREMITIES: No edema NEUROLOGIC: Dysarthria. Right arm 4+/5 but clumsy. Assessment/Plan: 1. 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 DAPT for 90 days, then Plavix. Lipitor. May need loop recorder 2. DM: Lantus/Lispro 3. DVT Prophylaxis: Heparin S/Q 4. Advanced Directives: Full code. is HCP 5. Thyroid nodule: will need follow up as outpt 6. Diabetic Retinopathy: Will need f/u as outpt 09/21/18 20:13
[2018-09-21] MEDS: Insulin GLARGINE(*) 1 UNITS UNIT SUBCUT SCH (21:50)
[2018-09-22] MEDS: Heparin VIAL(*) 5000 UNITS/ML VIAL (FIVE THOUSAND) SUBCUT SCH ×2 (05:04→13:28)
[2018-09-22] MEDS: Artificial Tears* 15 ML BTL BOTH EYES PRN ×3 (05:57→21:10)
[2018-09-22] MEDS: Docusate CAP* 100 MG PO SCH ×2 (09:30→20:02)
[2018-09-22] MEDS: Aspirin EC TAB* 81 MG TAB.EC PO SCH (09:30)
[2018-09-22] MEDS: Clopidogrel TAB* 75 MG PO SCH (09:30)
[2018-09-22] MEDS: Insulin LISPRO* 1 UNITS UNIT SUBCUT SCH ×7 (10:05→21:10)
[2018-09-22] MEDS: Atorvastatin* 40 MG TAB PO SCH (17:35)
--- NOTE | 2018-09-22 19:15 | PN ---
Progress Note Date of Service: 09/22/18 Note: LORENA ODOM was visited. Therapy notes read and reviewed. She is going home tomorrow and feels ready. BS ok. Right arm still clumsy and she is still dysarthric. Current Medications: Active Medications Generic Name Dose Route Start Last Admin Trade Name Freq PRN Reason Stop Dose Admin Acetaminophen 650 mg 09/18/18 09:18 Tylenol Tab* PO Q4H PRN FEVER > 101 Al Hydrox/Mg Hydrox/Simethicone 30 ml 09/18/18 09:18 Maalox Plus* PO Q6H PRN INDIGESTION Aspirin 81 mg 09/19/18 09:00 09/22/18 09:30 Aspirin Ec Tab* PO 81 mg DAILY AUDREY Administration Atorvastatin Calcium 40 mg 09/18/18 17:00 09/22/18 17:35 Lipitor* PO 40 mg 1700 AUDREY Administration Clopidogrel Bisulfate 75 mg 09/19/18 09:00 09/22/18 09:30 Plavix Tab* PO 75 mg DAILY AUDREY Administration Dextrose 12.5 gm 09/18/18 09:26 D50w Syringe 50 Ml* IV PUSH .FOR FS < 60 - SS PRN FS < 60 Docusate Sodium 100 mg 09/18/18 21:00 09/22/18 09:30 Colace Cap* PO 100 mg BID AUDREY Administration Insulin Glargine 75 units 09/18/18 21:00 09/21/18 21:50 Lantus(*) SUBCUT 75 units BEDTIME AUDREY Administration Insulin Human Lispro 5 units 09/18/18 11:30 09/22/18 17:36 Humalog* SUBCUT 5 units AC AUDREY Administration Insulin Human Lispro 0 units 09/18/18 11:30 09/22/18 17:37 Humalog* SUBCUT 6 units ACHS AUDREY Administration Protocol Magnesium Hydroxide 30 ml 09/18/18 09:18 Milk Of Magnesia Liq* PO Q6H PRN CONSTIPATION Polyvinyl Alcohol 1 drop 09/21/18 18:45 09/22/18 09:31 Polyvinyl Alcohol 1.4% Opth* BOTH EYES 1 drop Q2H PRN Administration DRY EYE Senna 2 tab 09/18/18 09:18 Senokot Tab* PO BEDTIME PRN CONSTIPATION Vital Signs: Vital Signs Temp Pulse Resp BP Pulse Ox 98.0 F 77 16 141/66 98 09/22/18 16:51 09/22/18 16:51 09/22/18 18:07 09/22/18 16:51 09/22/18 18:08 Lab Results: Laboratory Results - last 24 hr 09/21/18 09/22/18 09/22/18 20:42 07:29 12:02 POC Glucose (mg/dL) 135 H 149 H 135 H 09/22/18 16:43 POC Glucose (mg/dL) 216 H Exam: HEENT: NC/AT. EOMI LUNGS: Clear bilaterally HEART: Reg rhythm ABDOMEN: Soft EXTREMITIES: No edema NEUROLOGIC: Dysarthria. Right arm 4+/5 but clumsy. Assessment/Plan: 1. 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 DAPT for 90 days, then Plavix. Lipitor. May need loop recorder 2. DM: Lantus/Lispro 3. DVT Prophylaxis: Heparin S/Q 4. Advanced Directives: Full code. is HCP 5. Thyroid nodule: will need follow up as outpt 6. Diabetic Retinopathy: Will need f/u as outpt 09/22/18 19:16
[2018-09-22] MEDS: Insulin GLARGINE(*) 1 UNITS UNIT SUBCUT SCH (21:10)
[2018-09-23 06:02] VITALS: BP 145/72
[2018-09-23] MEDS: Insulin LISPRO* 1 UNITS UNIT SUBCUT SCH ×4 (09:37→12:23)
[2018-09-23] MEDS: Clopidogrel TAB* 75 MG PO SCH (09:39)
[2018-09-23] MEDS: Docusate CAP* 100 MG PO SCH (09:39)
[2018-09-23] MEDS: Aspirin EC TAB* 81 MG TAB.EC PO SCH (09:39)
--- NOTE | 2018-09-23 22:22 | DS ---
DISCHARGE SUMMARY: DATE OF ADMISSION: 09/18/18 DATE OF DISCHARGE: 09/23/18 DISCHARGE DIAGNOSES: 1. Left thalamic cerebrovascular accident. 2. Diabetes mellitus. 3. 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 4. Diabetic retinopathy. 5. Hypertension. 6. Thyroid nodule. HISTORY OF ILLNESS AND HOSPITAL COURSE: For complete history of the events leading up to her rehab stay, please see the history and physical dictated by Dr. Llii Garcia on 09/18/18. While on the rehab unit, the patient remained largely stable. Her blood sugars were in good control with a combination of Lantus and lispro insulin. She was kept on dual antiplatelet therapy, both Plavix and aspirin as outlined by Neurology. She will stay on this for 90 days and then go to Plavix alone. This was done for secondary stroke prevention. The patient otherwise was fairly stable from a medical point of view. She was on a consistent carbohydrate diet with regular textures and thin liquids. She remained dysarthric throughout her rehab stay. The patient was seen by Physical Therapy, Occupational Therapy, and Speech Therapy while on the rehab unit. She did make good gains with all 3 disciplines. With physical therapy at the time of admission, the patient required contact guard to transfer, contact guard to ambulate; with occupational therapy at the time of admission, the patient required supervision for upper body dressing, contact guard for lower body dressing, contact guard for toileting, contact guard for toilet transfers. By the time of discharge, she was independent toilet transfers, independent toileting, independent dressing. She was able to ambulate 150 feet independently. She could go up and down a flight of stairs with 2 railings but did require supervision. The patient also was seen by Speech Therapy while on the rehab unit. She was quite dysarthric. By the time of discharge, she did have mild dysarthria noted. She was however understandable. The patient was discharged home, 09/23/18. DISCHARGE DIET: Discharge diet was consistent carbohydrate. DISCHARGE MEDICATIONS: 1. Aspirin 81 mg orally once a day. 2. Lipitor 40 mg daily. 3. Plavix 75 mg orally daily. 4. Lantus insulin 84 units subcutaneously daily. 5. Lispro insulin 5 units with each meal. 6. Atenolol 25 mg daily. SERVICES AFTER DISCHARGE: The patient will have outpatient physical therapy, speech therapy, and occupational therapy at [facility]. Follow up with Dr. Ezequiel Jameson in 4 to 6 weeks as well as with her primary care doctor, Dr. Jennifer Ward. TIME SPENT: Time for this discharge was approximately 55 minutes. Greater than half of that was spent [id number] with the patient and her , discussing post rehabilitation therapies, medications, and followup. [id number]/[facility] #: [id number]
== END 2018-09-23 14:45 | disposition home or self-care (01) | DRG 58 ==
LOC: PMRU 11:40
PROVIDERS: ADMIT Physical Medicine & Rehabilitation; ATTEND Physical Medicine & Rehabilitation
PROC: F07Z5ZZ Bed Mobility Treatment (ICD-10-PCS; principal; 2018-09-18)
PROC: F07Z9ZZ Gait Training/Functional Ambulation Treatment (ICD-10-PCS; 2018-09-18)
PROC: F07Z8ZZ Transfer Training Treatment (ICD-10-PCS; 2018-09-18)
PROC: F08Z0ZZ Bathing/Showering Techniques Treatment (ICD-10-PCS; 2018-09-18)
PROC: F08Z1ZZ Dressing Techniques Treatment (ICD-10-PCS; 2018-09-18)
PROC: F08Z3ZZ Feeding/Eating Treatment (ICD-10-PCS; 2018-09-18)
PROC: F06Z8ZZ Motor Speech Treatment (ICD-10-PCS; 2018-09-18)
DX: I69.351 Hemiplegia and hemiparesis following cerebral infarction affecting right dominant side (principal); Z68.41 Body mass index [BMI] 40.0-44.9, adult; I69.322 Dysarthria following cerebral infarction; E11.65 Type 2 diabetes mellitus with hyperglycemia; E11.319 Type 2 diabetes mellitus with unspecified diabetic retinopathy without macular edema; E11.42 Type 2 diabetes mellitus with diabetic polyneuropathy; I10 Essential (primary) hypertension; E04.1 Nontoxic single thyroid nodule; Z79.1 Long term (current) use of non-steroidal anti-inflammatories (NSAID); Z79.02 Long term (current) use of antithrombotics/antiplatelets; Z79.82 Long term (current) use of aspirin; Z79.4 Long term (current) use of insulin; Z79.899 Other long term (current) drug therapy; Z88.1 Allergy status to other antibiotic agents; Z88.8 Allergy status to other drugs, medicaments and biological substances; Z91.048 Other nonmedicinal substance allergy status; Z80.7 Family history of other malignant neoplasms of lymphoid, hematopoietic and related tissues; Z80.0 Family history of malignant neoplasm of digestive organs; Z80.8 Family history of malignant neoplasm of other organs or systems; Z83.3 Family history of diabetes mellitus; Z81.8 Family history of other mental and behavioral disorders; E66.3 Overweight
CPT/HCPCS: 36415; 80053; 82607; 82746; 85025; A9270-GY; J1644

== ENCOUNTER 2024-08-17 11:13 | Inpatient (IN) ==
[2024-08-17] MEDS ORDERED: Dextran 70/Hypromellose Tears Eye Drops 15 ml BTL (for Artificials Tears) BOTH EYES PRN (12:27)
[2024-08-17] MEDS ORDERED: Dextrose 50% Syringe 50 ml 25 GM/50 ML SYRINGE IV PUSH PRN (12:29)
[2024-08-17] MEDS: Heparin 5000 UNITS/ML 1 mL VIAL SUBCUT SCH (14:35)
[2024-08-17] MEDS: Insulin GLARGINE 100 un/ml 10 ml VIAL SUBCUT SCH (21:27)
[2024-08-18 06:18] LABS: ABS Basophils 0.1 10^3/uL (0.0-0.1); ABS Eosinophils 0.1 10^3/uL (0.0-0.5); ABS Lymphocytes 2.5 10^3/uL (1.0-4.8); ABS Monocytes 0.8 10^3/uL (0.0-0.9); ABS Neutrophils 5.5 10^3/uL (1.5-7.6); ABS Nucleated RBC 0.01 10^3/ul; Eosinophil % 1.2 %; Hematocrit 33.9 % (35-45); Hemoglobin 11.4 g/dL (11.5-14.3); Lymphocyte % 28.2 %; Mean Corpuscular Hemoglobin 29.6 pg (27-33); Mean Corpuscular Hgb Conc 33.6 g/dL (31-36); Mean Corpuscular Volume 88.1 fL (80-97); Mean Platelet Volume 9.2 fL (7.5-11.2); Nucleated Red Blood Cells % 0.1 %/100WBC (0.0-0.8); Platelet Count 274 10^3/uL (150-450); Red Blood Count 3.85 10^6/uL (3.63-4.92); Red Cell Distribution Width 13.7 % (12-17)
[2024-08-18 06:41] LABS: Albumin 3.5 g/dL (3.5-5.7); Albumin/Globulin Ratio 1.4 (1-3); Calcium 8.8 mg/dL (8.6-10.3); Creatinine, Serum 0.81 mg/dL (0.51-0.95); Globulin 2.5 g/dL (2-4); Potassium 4.3 mmol/L (3.5-5.0); Total Bilirubin 0.7 mg/dL (0.2-1.0); eGFR CKD-EPI 81.5 (>60)
[2024-08-18] MEDS: Aspirin EC 81 mg TAB.EC (enteric coated) PO SCH (08:48)
[2024-08-18] MEDS: Magnesium Hydroxide LIQ 30 ML UDC PO PRN (20:51)
[2024-08-18] MEDS: Senna TAB 8.6 mg TAB PO PRN (20:51)
[2024-08-19] MEDS: Polyethylene Glycol 3350 17 GM PACKET PO SCH ×2 (10:54→10:57)
[2024-08-19] MEDS: Insulin GLARGINE 100 un/ml 10 ml VIAL SUBCUT SCH (20:37)
[2024-08-19] MEDS: Senna TAB 8.6 mg TAB PO SCH (20:38)
[2024-08-20] MEDS: Insulin GLARGINE 100 un/ml 10 ml VIAL SUBCUT SCH (08:11)
[2024-08-20] MEDS: PTO:Multivitamins/Mins AREDS2 (NF) CAP PO SCH (11:42)
[2024-08-20 16:44] LABS: Urine Appearance Clear; Urine Bilirubin Negative (Negative); Urine Blood Negative (Negative); Urine Color Colorless; Urine Glucose Negative (Negative); Urine Ketones Negative (Negative); Urine Nitrite Negative (Negative); Urine Protein Negative (Negative); Urine Specific Gravity 1.006 (1.002-1.030); Urine Urobilinogen Negative (Negative)
[2024-08-20 16:51] LABS: Urine Bacteria 1+ /HPF (Absent); Urine Red Blood Cell 1+(3-5/hpf) /HPF (0-Trace); Urine Squamous Epithelial Cell Present /HPF (Absent); Urine White Blood Cell 3+(>20/hpf) /HPF (0-Trace)
[2024-08-20] MEDS: Sulfamethox/Trimethoprim DS TAB 800/160 mg PO SCH (19:37)
[2024-08-20] MEDS: Heparin 5000 UNITS/ML 1 mL VIAL SUBCUT SCH (21:09)
[2024-08-21] MEDS: Insulin GLARGINE 100 un/ml 10 ml VIAL SUBCUT SCH (20:39)
[2024-08-25 06:35] LABS: ABS Basophils 0.1 10^3/uL (0.0-0.1); ABS Eosinophils 0.2 10^3/uL (0.0-0.5); ABS Lymphocytes 2.8 10^3/uL (1.0-4.8); ABS Monocytes 0.9 10^3/uL (0.0-0.9); ABS Neutrophils 4.8 10^3/uL (1.5-7.6); Eosinophil % 1.7 %; Hematocrit 34.1 % (35-45); Hemoglobin 11.7 g/dL (11.5-14.3); Lymphocyte % 31.7 %; Mean Corpuscular Hemoglobin 30.3 pg (27-33); Mean Corpuscular Hgb Conc 34.2 g/dL (31-36); Mean Corpuscular Volume 88.6 fL (80-97); Mean Platelet Volume 8.9 fL (7.5-11.2); Platelet Count 288 10^3/uL (150-450); Red Blood Count 3.85 10^6/uL (3.63-4.92); Red Cell Distribution Width 14.2 % (12-17); White Blood Count 8.7 10^3/uL (3.8-11.8)
[2024-08-25 06:57] LABS: Albumin 3.8 g/dL (3.5-5.7); Albumin/Globulin Ratio 1.7 (1-3); Creatinine, Serum 1.19 mg/dL (0.51-0.95); Globulin 2.3 g/dL (2-4); Potassium 4.3 mmol/L (3.5-5.0); Total Bilirubin 0.6 mg/dL (0.2-1.0); Total Protein 6.1 g/dL (6.4-8.9); eGFR CKD-EPI 51.4 (>60)
[2024-08-25] MEDS: Insulin GLARGINE 100 un/ml 10 ml VIAL SUBCUT SCH ×2 (07:27→21:08)
[2024-08-27 06:58] LABS: Calcium 8.9 mg/dL (8.6-10.3); Creatinine, Serum 1.01 mg/dL (0.51-0.95); Potassium 4.2 mmol/L (3.5-5.0); eGFR CKD-EPI 62.6 (>60)
[2024-08-29 06:15] VITALS: BP 147/58
== END 2024-08-29 14:00 | disposition home or self-care (01) | DRG 65 ==
LOC: PMRU 11:13
PROVIDERS: ADMIT Physical Medicine & Rehabilitation; ATTEND Physical Medicine & Rehabilitation